=== PATIENT | female | born 1955 | race Caucasian/White ===

== ENCOUNTER 2018-10-22 10:57 | Inpatient (IN) | payer OTHER, SELFPAY ==
[2018-10-08 13:41] VITALS: BMI 52.8
[2018-10-22] VITALS (14 sets, daily range): BP systolic 123–160; BP diastolic 59–84; PULSE 70–82; RESP 13–20; TEMP 35.9–36.7; O2SAT 92–99; BMI 52.8
--- NOTE | 2018-10-22 06:00 | DI.RAD.S_ITS ---
PROCEDURE: XR KNEE LT 1TO2V INDICATIONS: total left knee TECHNIQUE: 2 view(s) of the knee acquired. COMPARISON: [facility] RONNA Jung, XR KNEE ARTHRITIC SERIES BI, 08/29/2018, 9:04. FINDINGS: Bones: Patient is status post knee joint arthroplasty. Hardware components are in expected positions. Visualized bony structures are intact. Soft tissues: Overlying postoperative changes are noted. IMPRESSION: Postoperative changes as above. Dictated by: Marion Perkins M.D. on 10/22/2018 at 15:33 Approved by: Marion Perkins M.D. on 10/22/2018 at 15:34
--- NOTE | 2018-10-22 11:32 | PM.PREOP ---
Pre-operative Note Interval Note History & Physical reviewed/Exam performed by Physician: Yes Changes to H&P: No
--- NOTE | 2018-10-22 11:32 | PM.OP.1 ---
Operative Date/Time/Diagnoses Date of procedure: 10/22/18 Time of procedure: 14:45 Pre-op diagnosis: Left knee osteoarthritis Post-op diagnosis: same Procedure & Clinicians Procedure: Left total knee arthroplasty Same procedure as scheduled: Yes Indications: The patient presents today for total knee arthroplasty after failure of conservative treatment. The nature of the procedure including the risks and benefits, alternatives, postoperative course and expected outcome were discussed and all questions answered. Consent was obtained. Operative site confirmed and marked. Surgeon: Harlan Yoo Photo Print Specialist: Connor Jerez Anesthesia Type: General, Spinal, Peripheral nerve block and Local Operative Notes Findings: The patient had severe osteoarthritis primarily affecting the medial compartment. She also had significant restrictions in her preoperative range of motion which was approximately 5 to 75?. The procedure was difficult given her loss of motion and the size of her leg. It was somewhat difficult to assess the overall balance as the posterior soft tissues kept pushing the tibia anteriorly in flexion. The femoral component was downsized to decompression the flexion space to help with her loss of flexion. Closure Type: primary Specimen(s): none sent Prosthetic devices, grafts, tissues, transplants, or devices: Loco and Nephew Oliverio BCS: 5 femoral component, 3 tibial component, 9 mm BCS polyethylene tray and 29 x 7.5 mm round patella Applied: implant(s) Estimated Blood Loss (mL): 20 Blood products transfused: none Tourniquet time (min): 87 Procedure in detail: The patient was taken to the operative suite and placed under general and spinal anesthesia with an adductor nerve block. The patient was given prophylactic antibiotics prior to surgery. The patient was also given tranexamic acid, 1 g, just prior to surgery for postoperative hemostasis. The lateral knee was prepped and the joint injected with 20 mL of 1% Lidocaine with epinephrine. The knee was then prepped and draped in usual sterile fashion. The leg was exsanguinated with an Esmarch dressing and the tourniquet raised to 300 torr. A 15 cm anterior incision was made. Next a medial trivector arthrotomy was made. The extensor mechanism was marked to ensure accurate repair. Initial exposing dissection was carried out medially and laterally. The knee was then extended and the patellar thickness was measured and a cut made removing approximately 7-8 mm of bone. The patella was then sized and drilled. Some excess lateral bone was excised and the patellofemoral ligament released. The knee was then flexed and the intramedullary femoral guide jillian placed. The distal femoral cut was made in 6 ? of valgus at the + 0 position. The femoral size was measured and the appropriate cutting block was then placed and the anterior, posterior and chamfer cuts made. The extra medullary tibial alignment jillian was then placed along the anatomic axis of the tibia approximating the normal slope. The guide was set to remove approximately 10 mm from the less affected lateral side. The proximal tibial cut was then made with an oscillating saw. All meniscus and bony debris was then removed. Flexion extension gaps were checked. The knee was well balanced in extension but still tight in flexion. I decided to downsize the femur at this point to decompress the flexion space. The patient had good overall medial lateral balance with just slight increased lateral laxity. The soft tissues were then injected with a combination of 20 mL of half percent Marcaine with epinephrine and 20 mL of Exparel. The trial components were then placed. The knee went into full extension and flexion beyond 120?. There was excellent medial- lateral balance throughout motion. Patellar tracking was excellent. The trial components were removed and the knee was cleansed with Pulsavac irrigation and dried. The final components were cemented in with high viscosity vacuum mixed bone cement with antibiotics. The knee was held in extension and the patellar clamp until the cement had adequately cured. The knee was irrigated and inspected for any further debris. The knee was then irrigated with dilute Betadine solution. The extensor mechanism was closed with 5 interrupted #1 Vicryl sutures in 90 degrees of flexion. The joint was then injected with a combination of 1 g of tranexamic acid and 20 mL of quarter percent Marcaine with epinephrine. The subcutaneous tissue was closed with 2-0 Vicryl. The skin was closed with adelaida and surgical adhesive. An juan dressing and Romario wrap were then applied. The patient tolerated the procedure well and was returned to recovery room in good condition. Complications: none Post-operative Condition: stable Disposition: PACU Plan for aftercare: [facility] protocol for total knee arthroplasty.
[2018-10-22] MEDS: LACTATED RINGERS 1,000 ML 42 ML IV ×2 (11:36→13:28)
[2018-10-22] MEDS: ACETAMINOPHEN 325 MG TABLET 975 MG PO ×3 (11:37→20:01)
[2018-10-22] MEDS: PREGABALIN 75 MG CAPSULE PO (11:37)
[2018-10-22] MEDS: CELECOXIB 200 MG CAPSULE PO (11:37)
[2018-10-22] MEDS: MIDAZOLAM 2 MG/2 ML VIAL IV (12:31)
[2018-10-22] MEDS: fentaNYL 100 MCG/2 ML INJ 50 MCG IV (12:31)
--- NOTE | 2018-10-22 12:35 | SUR.OPER ---
Supine on padded OR bed. Pillow under head, arms secured on padded armboards <90 degree abduction. Safety belt across torso. Non-operative leg secured with tape over blanket over lower leg. Operative leg secured in DeMayo/Daniel positioner. Foam padded brace at thigh of operative leg.
[2018-10-22] MEDS: CEFAZOLIN 2 GM/100 ML FROZ.PIGGY IV (12:50)
[2018-10-22] MEDS: LIDOCAINE 1% W/EPI 20 ML INJ (13:26)
[2018-10-22] MEDS: BUPIVACAINE 0.25% W/ EPI (PF) 40 ML, BUPIVACAINE LIPOSOME 266 MG, SODIUM CHLORIDE 0.9% ... INJ (13:26)
[2018-10-22] MEDS: BUPIVACAINE 0.25% W/ EPI (PF) 20 ML, TRANEXAMIC ACID 1,000 MG, SODIUM CHLORIDE 0.9% 10 ML INJ (13:27)
--- NOTE | 2018-10-22 15:49 | SUR.PHASEI ---
PT TRANSFERRED TO ACUTE CARE FLOOR IN STABLE CONDITION. BEDSIDE REPORT GIVEN TO [facility] UPON ARRIVAL. PT FAMILY AT BEDSIDE UPON ARRIVAL TO ROOM. TRANSFERRED CARE OF PT TO [facility] AT THAT TIME IN STABLE CONDITION, VSS.
[2018-10-22] MEDS: OXYCODONE IR 5 MG TABLET 10 MG PO ×2 (16:39→20:00)
[2018-10-22] MEDS: LACTATED RINGERS 1,000 ML 125 ML IV (16:40)
--- NOTE | 2018-10-22 18:12 | PC.ADMIT ---
[address] [facility] Admission Note: The patient,Ellen Murillo,63 y/o, was given written information regarding hospital policies, unit procedures and contact persons. Patient's smoking status: Former smoker. Vital Signs - 8 hr 10/22/18 11:22 10/22/18 15:16 10/22/18 15:21 Temperature 97.7 F 98.0 F Pulse Rate 82 72 70 Respiratory Rate 20 16 16 Blood Pressure 144/83 H 132/75 127/75 Pulse Oximetry 97 95 95 10/22/18 15:26 10/22/18 15:31 10/22/18 15:36 Temperature Pulse Rate 71 72 73 Respiratory Rate 13 13 16 Blood Pressure 123/74 124/74 132/68 Pulse Oximetry 95 92 95 10/22/18 15:41 10/22/18 15:46 10/22/18 16:00 Temperature 97.9 F 96.6 F L Pulse Rate 70 72 70 Respiratory Rate 17 13 14 Blood Pressure 126/70 128/74 128/62 Pulse Oximetry 94 94 95 10/22/18 16:36 10/22/18 16:55 10/22/18 17:55 Temperature 97.7 F 97.2 F L 97.4 F L Pulse Rate 70 71 70 Respiratory Rate 15 16 16 Blood Pressure 144/77 H 157/81 H 160/84 H Pulse Oximetry 95 98 99 Patient up from pacu at 1555, awake and alert. denied pain at that time. scds in place and bulky drsg cdi.
[2018-10-22] MEDS: CARVEDILOL 25 MG TABLET PO (20:00)
[2018-10-22] MEDS: ASPIRIN EC 81 MG TABLET PO (20:00)
[2018-10-22] MEDS: LORATADINE 10 MG TABLET PO (20:01)
[2018-10-22] MEDS: CEFAZOLIN VIAL 3 GM in SODIUM CHLORIDE 0.9% 100 ML 200 ML IV (20:02)
--- NOTE | 2018-10-22 22:23 | PC.NURSE ---
Patient resting in bed most of the shift. Did get up with 2 assist and FWW to bathroom and was able to void. Pain controlled well with oxycodone. Patient has been calm and cooperative.
[2018-10-23] MEDS: OXYCODONE IR 5 MG TABLET 10 MG PO ×6 (01:12→22:08)
[2018-10-23] MEDS: CEFAZOLIN VIAL 3 GM in SODIUM CHLORIDE 0.9% 100 ML 200 ML IV (04:25)
[2018-10-23] MEDS: SODIUM CHLORIDE 0.9% FLUSH 10 ML IV ×3 (04:25→20:24)
[2018-10-23 07:35] VITALS: BP 135/58; PULSE 71; RESP 22; TEMP 36.8; O2SAT 97
[2018-10-23 07:51] LABS: Hematocrit 32.1 % (36-46); Hemoglobin 11.3 g/dL (12.0-16.0)
[2018-10-23] MEDS: MELOXICAM 7.5 MG TABLET 15 MG PO (09:30)
[2018-10-23] MEDS: ASPIRIN EC 81 MG TABLET PO ×2 (09:30→20:23)
[2018-10-23] MEDS: CARVEDILOL 25 MG TABLET PO ×2 (09:30→20:23)
[2018-10-23] MEDS: ACETAMINOPHEN 325 MG TABLET 975 MG PO ×3 (09:30→20:23)
[2018-10-23] MEDS: CANDESARTAN 16 MG TABLET 4 MG PO (09:30)
--- NOTE | 2018-10-23 09:39 | P.PN_ITS ---
Subjective Subjective Date Patient Seen: 10/23/18 Time Patient Seen: 09:39 Interval history: Pain mild to moderate. Denies fever chills. No nausea vomiting. Patient has not yet worked with physical therapy. Exam Vital Signs (past 8 hours): - 10/23/18 07:35 Temperature 98.3 F Pulse Rate 71 Respiratory Rate 22 Blood Pressure 135/58 L Pulse Oximetry 97 Oxygen Delivery Method Room Air Oxygen Flow Rate 0 Narrative Exam Narrative: Morbidly obese 63-year-old female in no apparent distress. LAVERNE dressing is on and functioning. Dressing is clean, dry and intact. Motor fun ction is intact distal left lower extremity. Left leg is warm and dry. Sensation grossly intact to light touch. Objective Labs Result Diagrams: 10/23/18 07:39 Labs: Laboratory Results - last 24 hr 10/23/18 07:39 Hgb 11.3 L Hct 32.1 L Assessment & Plan Post-op Postoperative Procedures: Procedures Operation Date: 10/22/18 13:15 Actual Procedures Side Surgeon p Total Knee Arthroplasty Left Harlan Yoo MD postop day 1 status post left total knee arthroplasty. Patient will mobilize with physical therapy work on lower extremity strength. Possible discharge home later today or tomorrow. Quality VTE Deep Vein Thrombosis/Pulmonary Embolism Present on Admission: No
--- NOTE | 2018-10-23 10:37 | CM.DANOTE ---
DCP: Case received, EMR reviewed and met with patient. Introduced self and role. , Mehul, also at bedside, and patient was sitting up in her chair. Was able to obtain baseline health information from patient. DCP template/assessment completed with information currently available. Patient is a 63 year old female who admitted yesterday morning to the care of the orthopedic team. PCP: Dr. Robles/[facility]. Payer: confirmed: [facility]. Patient came to the hospital for a surgical procedure. She had a left total knee arthroplasty. Patient had just finished working with physical therapy when this tool planner met with her. , Mehul, also in room. Patient and spouse reside in [place]. She is alert and oriented, has been independent at home, two grandkids and daughter live with them. She has been using a cane prior to surgery. She now has a walker available as well. Patient also has outpatient P.T. set up in [place]. P: DCP to continue to follow patient. She should be able to go home when she is medically stable, and cleared by the physical therapy team. Dorene Douglas RN/Director Case Management
--- NOTE | 2018-10-23 11:35 | PT.IIE ---
Current Diagnoses Pain in right knee (10/22/18) Surgery Performed Operation Date: 10/22/18 13:15 Actual Procedures p Total Knee Arthroplasty(Left) - Harlan Yoo MD Surgical History (Last Updated 10/08/18 @ 14:22 by Sabrina Burgos RN) History of carpal tunnel surgery of right wrist (Acute) History of ear surgery (Acute) Hx of abdominoplasty (Acute) Hx of dilation and curettage (Acute) Hx of elbow surgery (Acute) Hx of removal of cyst (Acute) S/P epidural steroid injection (Acute) Medical History (Last Updated 10/09/18 @ 07:26 by Sabrina Burgos RN) Atrial fibrillation (Acute) Back pain (Acute) Bronchitis (Acute) Cardiac arrest (Acute ~2011) CHF (congestive heart failure) (Acute) Concussion (Acute ~2016) Diverticulitis (Acute) Hearing impaired (Acute) HTN (hypertension) (Acute) 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) LBBB (left bundle branch block) (Acute) Nonischemic cardiomyopathy (Acute) Osteoarthritis (Acute) PVT (paroxysmal ventricular tachycardia) (Acute) Seasonal allergies (Acute) Sensitive skin (Acute) Whiplash (Acute) Physical Therapy Inpatient Evaluation/Re-Eval M1 PT/OT-IP Prior Functional Status Start: 10/23/18 08:35 Freq: NEEDED Status: Active Protocol: Document 10/23/18 11:02 AW (Rec: 10/23/18 11:32 AW [id number]) Medical Review Prior Functional Status Medical History Reviewed Yes Diet/Fluid Consistency Regular Communication No communication deficits Mobility and Gait Pt reports frequent but not constant use of SPC in her home, occasionally choosing to cruise countertops and furniture instead. She was using a SPC at all times outside of the house and on uneven surfaces Activities of Daily Living and IADL's Indpependent with all ADL/IADL 's. Social History Household Members spouse,children Living Arrangements House Number of Floors (Floors) Two Floors Number of Stairs To Enter/Railing? 2 JANIE with no railing Home Environment Standard Height Toilet,Tub/ Shower Home Equipment Front Wheel Walker,Straight Cane,Raised Toilet Seat w/ Armrests,Tub Transfer Bench, Hand Held Shower,Grab Bars In Shower Employment Status Self-Employed Additional Social History Comment Pt and her spouse live on the main level and do not need to use the stairs once inside the home. Spouse works outside the home, but is off until to assist at home. Adult children also live in the home . M2 PT-IP Current Condition Start: 10/23/18 08:35 Freq: NEEDED Status: Active Protocol: Document 10/23/18 11:02 AW (Rec: 10/23/18 11:32 AW [id number]) Physical Therapy Current Condition Current Condition Evaluation Date 10/23/18 Treatment Diagnosis s/p L TKA , impaired bed mobility, transfers, and gait Onset Date 10/22/18 Weight Bearing Status Weight Bearing Status Weight Bear as Tolerated M3 PT-IP Subjective Start: 10/23/18 08:35 Freq: NEEDED Status: Active Protocol: Document 10/23/18 11:02 AW (Rec: 10/23/18 11:32 AW [id number]) Subjective Physical Therapy Visit Type Type Initial Evaluation Visit Start Time 09:38 Visit Stop Time 10:18 Total Visit Minutes 40 Number of TRANSACTIONAL PARALEGAL Visits 0 Physical Therapy Visit Comments Patient Comments Pt is medicated and ready to participate with PT Patient Goals Pt would like to become more independent with walking and eventually be able to walk with no AD on uneven ground Therapy Pain Assessment Pain When Pain Assessed During Mobility Pain Present Pain Present Pain Reported Location Left Knee Intensity 5 Scale Used Numeric (1 - 10) M4 PT-IP Mobility and Gait Start: 10/23/18 08:35 Freq: NEEDED Status: Active Protocol: Document 10/23/18 11:02 AW (Rec: 10/23/18 11:32 AW [id number]) PT-Bed Mobility Assessment Rolling Type of Rolling Roll to Right Level of Assist Minimal Assistance Supine to Sit Supine to Sit Minimal Assistance Scooting Scooting to Edge of Bed Standby Assistance PT-Transfer Assessment Sit to and From Stand Sit to and from Stand Minimal Assistance,1 Person Assistance,Use of Upper Extremities Equipment Transfer Assistive Device Gait Belt,Front Wheeled Walker Orthotic/Prosthetic Devices or Brace: No Transfers Transfer Destination Bed,Chair,Toilet Transfer Technique Stand Step Pivot Transfer Ability Level of Assist Contact Guard Assistance, Minimal Assistance Comments Mobility Comments Pt requiring CGA to min A and verbal cues for sequencing for all transfers secondary to hesitation to move. Pt transferred to bed, chair, and toilet. Gait Assessment Gait Gait Assistance Required: Contact Guard Assist Distance (Feet) 30 Able to Maintain Weight Bearing Status Yes During Gait Assistive Devices Assistive Device Gait Belt,Front Wheeled Walker Orthotic/Prosthetic Devices or Brace: No Gait Deviations General Gait Pattern Antalgic,Decreased Stride Length,Decreased Feet Clearance,Flexed Trunk,Step-to Gait Factors Limiting Gait Function Factors Limiting Gait Function Decreased Activity Tolerance, Decreased Strength,Limited Range of Motion,Pain,Poor Balance Comments Gait Comments Pt ambulated 30' + 20' using FWW and CGA. She moves slowly with heavy reliance on upper extremities to offload the left knee during stance. PT-Balance Assessment Sitting Balance and Reactions Static Sitting Balance Ability Good Dynamic Sitting Balance Ability Good Standing Balance and Reactions Static Standing Balance Ability Good Dynamic Standing Balance Ability Fair Device Used FWW M5 PT-IP Objective Assessments Start: 10/23/18 08:35 Freq: NEEDED Status: Active Protocol: Document 10/23/18 11:02 AW (Rec: 10/23/18 11:32 AW [id number]) Orientation Orientation/Cognition Level of Alertness Alert Orientation Name,Month,Place,Situation Language Function Ability No Deficits Noted Safety Awareness Understands Safety Issues Memory Description No Deficits Noted Gross Range of Motion Upper Extremity ROM Assessment Within Functional Limits Lower Extremity ROM Assessment Left Impaired Impairments Left knee lacking ~10 degrees extension Strength Upper Extremity Strength Assessment Within Functional Limits Lower Extremity Strength Assessment Left Impaired Coordination Assessment Gross Coordination Gross Coordination WNL Sensation Assessment Sensation Gross Sensation WNL Light Touch Intact Muscle Tone Muscle Tone WNL Yes M6 PT-IP Treatment Start: 10/23/18 08:35 Freq: NEEDED Status: Active Protocol: Document 10/23/18 11:02 AW (Rec: 10/23/18 11:32 AW [id number]) Physical Therapy Treatment Exercises Exercises Ankle Pumps,Quad Sets,Passive Knee Extension Hang Education Education Provided Precautions,Weight Bearing Status,Post-Op Packet,Safety M7 PT-IP Assessment and Plan Start: 10/23/18 08:35 Freq: NEEDED Status: Active Protocol: Document 10/23/18 11:02 AW (Rec: 10/23/18 11:32 AW [id number]) PT Summary Assessment and Plan Potential Rehabilitation Potential Good Status of Condition at Evaluation Evolving Summary Impairments Pain,ROM,Strength,Balance,Bed Mobility,Transfers,Gait, Activity Tolerance Assessment Summary Pt is a 63 yo woman seen for PT eval on POD1 following L TKA. PLOF: Pt was ambulating with SPC for most household distances and all community distances; she reports she had become unable to walk grocery store distances in the weeks leading up to surgery. She was independent with all ADL/IADL 's. She has a spouse and adult children who live with her and are able to provide assistance. CLOF: Pt required CGA to min assist for bed mobility, transfers, and gait. She expressed some hesitancy to move initially, but showed good effort once up. BP monitored throughout session: 160/76 seated, 122/67 standing . Pt was asymptomatic in standing and recovered BP within one minute. PT reviewed plan of care, post-op exercises, and weightbearing status. Pt will require further therapy to increase her independence with all functional mobility, including stairs, before she discharges . Current PT recommendation is for discharge to home with assist for all mobility and outpatient PT when medically cleared. Will continue to assess. Goals Bed Mobility Goal Standby Assistance Transfer Goal Standby Assistance Gait Goal Standby Assistance Gait Distance 100 Other Goals Pt will ascend/descend 2 steps using hand-hold assist/CGA with no railing for safe access to home Frequency of Treatment Frequency Of Treatment Twice a Day Treatment Plan Physical Therapy Treatment Plan Bed Mobility Training,Transfer Training,Gait Training, Therapeutic Exercise,Balance Retraining,Post Op Education, Discharge Planning,Hot or Cold Pack,Neuromuscular Re-ed, Coordination Retraining,Manual Therapy Recommendations To Nursing Amount of Assist Needed 1 Person Assist Discharge Recommendations PT Discharge Recommendations Home with Assistance, Outpatient PT
[2018-10-23 11:41] VITALS: BP 137/59; PULSE 69; RESP 23; TEMP 37; O2SAT 99
[2018-10-23] MEDS: ONDANSETRON 4 MG ODT PO (12:51)
[2018-10-23 15:45] VITALS: BP 119/62; PULSE 71; RESP 18; TEMP 36.7; O2SAT 97
--- NOTE | 2018-10-23 16:42 | PT.IPTN ---
Current Diagnoses Pain in right knee (10/22/18) Surgery Performed Operation Date: 10/22/18 13:15 Actual Procedures p Total Knee Arthroplasty(Left) - Harlan Yoo MD Physical Therapy Treatment Note M2 PT-IP Current Condition Start: 10/23/18 08:35 Freq: NEEDED Status: Active Protocol: Document 10/23/18 11:02 AW (Rec: 10/23/18 11:32 AW [id number]) Physical Therapy Current Condition Current Condition Evaluation Date 10/23/18 Treatment Diagnosis s/p L TKA , impaired bed mobility, transfers, and gait Onset Date 10/22/18 Weight Bearing Status Weight Bearing Status Weight Bear as Tolerated M3 PT-IP Subjective Start: 10/23/18 08:35 Freq: NEEDED Status: Active Protocol: Document 10/23/18 15:53 AW (Rec: 10/23/18 16:42 AW [id number]) Subjective Physical Therapy Visit Type Type Treatment Note Visit Start Time 15:58 Visit Stop Time 16:22 Total Visit Minutes 24 Physical Therapy Visit Comments Patient Comments Pt has been feeling nauseous today but has not vomited. Nausea is well controlled with medication. She has been up in the chair since morning session and would like to use the washroom. Therapy Pain Assessment Pain When Pain Assessed During Mobility Pain Present Pain Present Pain Reported Location Left Knee Intensity 4 Scale Used Numeric (1 - 10) M4 PT-IP Mobility and Gait Start: 10/23/18 08:35 Freq: NEEDED Status: Active Protocol: Document 10/23/18 15:53 AW (Rec: 10/23/18 16:42 AW [id number]) PT-Bed Mobility Assessment Scooting Scooting to Edge of Bed Standby Assistance PT-Transfer Assessment Sit to and From Stand Sit to and from Stand Contact Guard Assistance, Minimal Assistance,Use of Upper Extremities Equipment Transfer Assistive Device Gait Belt,Front Wheeled Walker Orthotic/Prosthetic Devices or Brace: No Transfers Transfer Destination Bed,Toilet Transfer Technique Stand Step Pivot Transfer Ability Level of Assist Contact Guard Assistance, Minimal Assistance,Use of Upper Extremities Comments Mobility Comments Pt reports greater confidence in her knee this afternoon. She required CGA for transfer to and from toilet, min A for transfer from chair which is lower and softer. Gait Assessment Gait Gait Assistance Required: Contact Guard Assist Distance (Feet) 80 Able to Maintain Weight Bearing Status Yes During Gait Assistive Devices Assistive Device Gait Belt,Front Wheeled Walker Orthotic/Prosthetic Devices or Brace: No Gait Deviations General Gait Pattern Antalgic,Decreased Stride Length,Decreased Feet Clearance Comments Gait Comments Pt ambulated ~80' with improved gait pattern (step- through 75% of the time) using FWW CGA. Gait speed is slow and pt did require 3 short, standing rest breaks to complete 80'. She reported RPE 5/10 during ambulation. M5 PT-IP Objective Assessments Start: 10/23/18 08:35 Freq: NEEDED Status: Active Protocol: Document 10/23/18 11:02 AW (Rec: 10/23/18 11:32 AW [id number]) Orientation Orientation/Cognition Level of Alertness Alert Orientation Name,Month,Place,Situation Language Function Ability No Deficits Noted Safety Awareness Understands Safety Issues Memory Description No Deficits Noted Gross Range of Motion Upper Extremity ROM Assessment Within Functional Limits Lower Extremity ROM Assessment Left Impaired Impairments Left knee lacking ~10 degrees extension Strength Upper Extremity Strength Assessment Within Functional Limits Lower Extremity Strength Assessment Left Impaired Coordination Assessment Gross Coordination Gross Coordination WNL Sensation Assessment Sensation Gross Sensation WNL Light Touch Intact Muscle Tone Muscle Tone WNL Yes M6 PT-IP Treatment Start: 10/23/18 08:35 Freq: NEEDED Status: Active Protocol: Document 10/23/18 15:53 AW (Rec: 10/23/18 16:42 AW [id number]) Physical Therapy Treatment Exercises Exercises Ankle Pumps,Quad Sets,Passive Knee Extension Hang Education Education Provided Safety M7 PT-IP Assessment and Plan Start: 10/23/18 08:35 Freq: NEEDED Status: Active Protocol: Document 10/23/18 15:53 AW (Rec: 10/23/18 16:42 AW [id number]) PT Summary Assessment and Plan Summary Impairments Pain,ROM,Strength,Balance,Bed Mobility,Transfers,Gait, Activity Tolerance Assessment Summary Pt progressed gait distance but required 3 standing rest breaks to complete 80' with FWW CGA. RPE of 5/10 with ambulation indicates poor activity tolerance. PT continues to recommend discharge to home with assistance and outpatient PT but will continue to assess. Goals Bed Mobility Goal Standby Assistance Transfer Goal Standby Assistance Gait Goal Standby Assistance Gait Distance 100 Other Goals Pt will ascend/descend 2 steps using hand-hold assist/CGA with no railing for safe access to home Frequency of Treatment Frequency Of Treatment Twice a Day Treatment Plan Physical Therapy Treatment Plan Bed Mobility Training,Transfer Training,Gait Training, Therapeutic Exercise,Balance Retraining,Post Op Education, Discharge Planning,Hot or Cold Pack,Neuromuscular Re-ed, Coordination Retraining,Manual Therapy Recommendations To Nursing Amount of Assist Needed 1 Person Assist Discharge Recommendations PT Discharge Recommendations Home with Assistance, Outpatient PT
[2018-10-23 20:15] VITALS: BP 127/59; PULSE 70; RESP 17; TEMP 36.1; O2SAT 99
[2018-10-23] MEDS: LORATADINE 10 MG TABLET PO (20:23)
--- NOTE | 2018-10-23 20:39 | PC.NURSE ---
Patient started up in the chair at the beginning of the shift. Tolerated sitting up for couple of hours. Back to bed with PT, tolerated well with ambulating. CMS(+), pain controlled well with oxycodone.
[2018-10-24] MEDS: ONDANSETRON 4 MG ODT PO ×2 (00:40→09:19)
[2018-10-24 00:45] VITALS: BP 136/58; PULSE 73; RESP 18; TEMP 36.3; O2SAT 96
[2018-10-24 04:07] VITALS: BP 140/82; PULSE 71; RESP 20; TEMP 36.6; O2SAT 98
[2018-10-24] MEDS: OXYCODONE IR 5 MG TABLET 10 MG PO (05:29)
[2018-10-24 08:38] VITALS: BP 116/62; PULSE 73; RESP 22; TEMP 36.7; O2SAT 97
--- NOTE | 2018-10-24 09:19 | PM.DS.1 ---
History of Present Illness History of Present Illness Date Patient Seen: 10/24/18 Time Patient Seen: 09:19 Chief complaint: [id number] Narrative: Hospital day 3, postop day 2 following left total knee arthroplasty by Dr. Yoo. She has remained stable postoperatively. She does complain of nausea with oxycodone. She is concerned about using this at home. She has not been tried on [place]. She is a [facility] patient and has prescriptions at home for oxycodone and meloxicam. She has work with PT and they have okayed her for home except she needs stair training. She is scheduled to go to [facility] in [place]. Discharge Providers Provider Date of admission: 10/22/18 10:57 Discharge Date: 10/24/18 Consults: 10/22/18 16:10 Consult to Discharge Planning Routine Comment: Consult to Physical Therapy Evaluate & Treat Comment: Physician Instructions: postop TKA protocol Consult to Respiratory Therapy Evaluate & Treat Comment: Physician Instructions: Evaluate and treat Discharge provider: Sergei Jaramillo PA-C Summary Hospital Course Discharge Diagnosis: Status post left total knee arthroplasty Hospital Course: Patient brought to hospital on 10/22/2018 for above noted surgery. She remained stable postoperatively. Progressed with physical therapy. Ready for discharge home on postop day 2. Status at Discharge Cognitive/behavioral status at discharge: oriented Functional status at discharge: uses cane/walker Overall status at discharge: patient is progressing back to baseline Time Spent with Patient Time spent: Less than 30 minutes Exam Vital Signs (past 8 hours): - 10/24/18 04:07 10/24/18 08:38 Temperature 97.8 F 98.1 F Pulse Rate 71 73 Respiratory Rate 20 22 Blood Pressure 140/82 116/62 Pulse Oximetry 98 97 Oxygen Delivery Method Room Air Oxygen Flow Rate 0 Narrative Exam Narrative: Alert, oriented no acute distress resting in bed. Legs. Romario wrap and juan dressing to left knee is dry without drainage or inflammation. Good VAC to juan dressing. No calf pain or swelling. Pulses symmetrical. Objective Labs Result Diagrams: 10/23/18 07:39 Discharge Plan Discharge Plan Patient Disposition: Home Discharge comment: Discharge home today after cleared by PT. She is a [facility] patient has prescriptions at home for oxycodone and meloxicam. Given prescription for Hammond 10/[address] of oxycodone. She is scheduled go to [facility] in [place]. She will take aspirin 81 mg 1 b.i.d. times 30 days postop. Discharge Med Rec/Prescriptions Prescriptions: New hydrocodone-acetaminophen 10-325 mg Tablet 1 tab PO Q4HR PRN (Reason: Pain, Moderate (4-6)) Qty: 40 RF: 0 aspirin 81 mg Tablet,Delayed Release (Dr/Ec) 81 mg PO BID Qty: 60 RF: 0 Continued carvedilol 25 mg Tablet 25 mg PO BID RF: 0 candesartan 4 mg Tablet 4 mg PO DAILY RF: 0 acetaminophen [Tylenol Extra Strength] 500 mg Tablet 1,000 mg PO Q6H PRN (Reason: Pain) RF: 0 meloxicam 7.5 mg Tablet 7.5 mg PO BID RF: 0 Zyrtec 10 mg Capsule 10 mg PO BEDTIME RF: 0 Provider Discharge Instructions Diet: Diet as Tolerated Activity: Ambulate as tolerated. Use walker as needed. Range of motion of left knee as much as possible. Cold/Heat Therapy: Cold pack to left knee as needed. Skin/Wound/Dressing Care Report to your healthcare provider any signs of infection, such as:: chills, fever, night sweats, increased pain, unusual drainage and unusual redness Dressing: Keep juan dressing in place until postop visit. Visit Report/Discharge Packet Instructions: DI for Knee Replacement Quality VTE Deep Vein Thrombosis/Pulmonary Embolism Present on Admission: No
--- NOTE | 2018-10-24 10:38 | PT.IPTN ---
Current Diagnoses Pain in right knee (10/22/18) Surgery Performed Operation Date: 10/22/18 13:15 Actual Procedures p Total Knee Arthroplasty(Left) - Harlan Yoo MD Physical Therapy Treatment Note M2 PT-IP Current Condition Start: 10/23/18 08:35 Freq: NEEDED Status: Active Protocol: Document 10/23/18 11:02 AW (Rec: 10/23/18 11:32 AW [id number]) Physical Therapy Current Condition Current Condition Evaluation Date 10/23/18 Treatment Diagnosis s/p L TKA , impaired bed mobility, transfers, and gait Onset Date 10/22/18 Weight Bearing Status Weight Bearing Status Weight Bear as Tolerated M3 PT-IP Subjective Start: 10/23/18 08:35 Freq: NEEDED Status: Active Protocol: Document 10/24/18 10:38 AB (Rec: 10/24/18 12:07 AB [email or web address]) Subjective Physical Therapy Visit Type Type Treatment Note Visit Start Time 10:38 Visit Stop Time 11:06 Total Visit Minutes 28 Number of ONLINE CONTENT DEVELOPER Visits 0 Physical Therapy Visit Comments Patient Comments pt agreeable to do PT but c/o nausea Therapy Pain Assessment Pain When Pain Assessed During Mobility Pain Present Pain Present Pain Reported Location Left Knee Intensity 8 Scale Used Numeric (1 - 10) Pain Management Techniques Re-positioning,Timing of Activity with Medications M4 PT-IP Mobility and Gait Start: 10/23/18 08:35 Freq: NEEDED Status: Active Protocol: Document 10/24/18 10:38 AB (Rec: 10/24/18 12:07 AB [email or web address]) PT-Bed Mobility Assessment Supine to Sit Supine to Sit Standby Assistance,Bedrails PT-Transfer Assessment Sit to and From Stand Sit to and from Stand Contact Guard Assistance, Maximum Assistance,1 Person Assistance,Use of Upper Extremities Equipment Transfer Assistive Device Gait Belt,Front Wheeled Walker Orthotic/Prosthetic Devices or Brace: No Transfers Transfer Destination Chair,Toilet Transfer Technique pt ambulated using FWW Transfer Ability Level of Assist Contact Guard Assistance, Minimal Assistance Comments Mobility Comments pt completed supine to sit SBA . pt was able to sit on EOB SBA. pt ambulated towards the toilet using FWW CGA to occasional min A and cues. pt completed sit to stand from the toilet requiring max A and cues and attempted x 4 before able to complete. pt ambulated towards the sink using FWW CGA and was able to maintain standing using FWW for support CGA while completing handwashing. pt ambulated using FWW heading towards the stairs but c/o increase pain and nausea and requested for stair climbing to be conducted later in the afternoon. pt requested a seated rest break. agreed to get up to sit on the chair. completed sit to stand form the EOB SBA and ambulated to the chair CGA. call light and table placed within reach. Gait Assessment Gait Gait Assistance Required: Contact Guard Assist,Minimum Assistance Distance (Feet) 25 Able to Maintain Weight Bearing Status Yes During Gait Assistive Devices Assistive Device Gait Belt,Front Wheeled Walker Orthotic/Prosthetic Devices or Brace: No Gait Deviations General Gait Pattern Antalgic,Decreased Stride Length,Decreased Feet Clearance,Step-to Gait Factors Limiting Gait Function Factors Limiting Gait Function Decreased Activity Tolerance, Decreased Strength,Limited Range of Motion,Pain,Poor Balance M5 PT-IP Objective Assessments Start: 10/23/18 08:35 Freq: NEEDED Status: Active Protocol: Document 10/23/18 11:02 AW (Rec: 10/23/18 11:32 AW [id number]) Orientation Orientation/Cognition Level of Alertness Alert Orientation Name,Month,Place,Situation Language Function Ability No Deficits Noted Safety Awareness Understands Safety Issues Memory Description No Deficits Noted Gross Range of Motion Upper Extremity ROM Assessment Within Functional Limits Lower Extremity ROM Assessment Left Impaired Impairments Left knee lacking ~10 degrees extension Strength Upper Extremity Strength Assessment Within Functional Limits Lower Extremity Strength Assessment Left Impaired Coordination Assessment Gross Coordination Gross Coordination WNL Sensation Assessment Sensation Gross Sensation WNL Light Touch Intact Muscle Tone Muscle Tone WNL Yes M6 PT-IP Treatment Start: 10/23/18 08:35 Freq: NEEDED Status: Active Protocol: Document 10/24/18 10:38 AB (Rec: 10/24/18 12:07 AB [email or web address]) Physical Therapy Treatment Education Education Provided Safety M7 PT-IP Assessment and Plan Start: 10/23/18 08:35 Freq: NEEDED Status: Active Protocol: Document 10/24/18 10:38 AB (Rec: 10/24/18 12:07 AB [email or web address]) PT Summary Assessment and Plan Potential Rehabilitation Potential Good Summary Impairments Pain,ROM,Strength,Balance, Coordination,Bed Mobility, Transfers,Gait,Activity Tolerance Progress Towards Goals Slow Progress due to Pain Assessment Summary pt requiring SBA to min A with mobility and plans to go home with spouse to assist her. pt was not able to tolerate much activity this morning with c/o nausea and increase pain. will conduct long distance ambulation and stair climbing training this afternoon to determine safe d/ c plans. will also complete caregiver training when appropriate. will continue to assess pt's progress. Goals Bed Mobility Goal Standby Assistance Transfer Goal Standby Assistance Gait Goal Standby Assistance Gait Distance 100 Other Goals Pt will ascend/descend 2 steps SPC CGA Frequency of Treatment Frequency Of Treatment Twice a Day Treatment Plan Physical Therapy Treatment Plan Bed Mobility Training,Transfer Training,Gait Training, Therapeutic Exercise,Balance Retraining,Post Op Education, Discharge Planning,Hot or Cold Pack,Neuromuscular Re-ed, Coordination Retraining,Manual Therapy Recommendations To Nursing Amount of Assist Needed 1 Person Assist Discharge Recommendations PT Discharge Recommendations Home with Assistance, Outpatient PT
[2018-10-24] MEDS: CANDESARTAN 16 MG TABLET 4 MG PO (11:09)
[2018-10-24] MEDS: ACETAMINOPHEN 325 MG TABLET 975 MG PO (11:10)
[2018-10-24] MEDS: CARVEDILOL 25 MG TABLET PO (11:10)
[2018-10-24] MEDS: HYDROCODONE/ACET 10/325 TABLET 1 TAB PO (11:10)
[2018-10-24] MEDS: ASPIRIN EC 81 MG TABLET PO (11:10)
[2018-10-24] MEDS: MELOXICAM 7.5 MG TABLET 15 MG PO (11:10)
[2018-10-24] MEDS: SODIUM CHLORIDE 0.9% FLUSH 10 ML IV (11:11)
[2018-10-24 12:10] VITALS: BP 140/65; PULSE 73; RESP 21; TEMP 36.7; O2SAT 99
--- NOTE | 2018-10-24 14:15 | PT.IPTN ---
Current Diagnoses Pain in right knee (10/22/18) Surgery Performed Operation Date: 10/22/18 13:15 Actual Procedures p Total Knee Arthroplasty(Left) - Harlan Yoo MD Physical Therapy Treatment Note M2 PT-IP Current Condition Start: 10/23/18 08:35 Freq: NEEDED Status: Discharge Protocol: Document 10/23/18 11:02 AW (Rec: 10/23/18 11:32 AW [id number]) Physical Therapy Current Condition Current Condition Evaluation Date 10/23/18 Treatment Diagnosis s/p L TKA , impaired bed mobility, transfers, and gait Onset Date 10/22/18 Weight Bearing Status Weight Bearing Status Weight Bear as Tolerated M3 PT-IP Subjective Start: 10/23/18 08:35 Freq: NEEDED Status: Discharge Protocol: Document 10/24/18 14:15 AB (Rec: 10/24/18 17:13 AB [email or web address]) Subjective Physical Therapy Visit Type Type Treatment Note Visit Start Time 14:15 Visit Stop Time 14:50 Total Visit Minutes 35 Number of VP STRATE[employer]IC [employer]NERSHIPS Visits 0 Physical Therapy Visit Comments Patient Comments pt agreeable to do PT Therapy Pain Assessment Pain When Pain Assessed At Rest Pain Present Pain Present Pain Reported Location Left Knee Intensity 4 Scale Used Numeric (1 - 10) Pain Management Techniques Re-positioning,Timing of Activity with Medications M4 PT-IP Mobility and Gait Start: 10/23/18 08:35 Freq: NEEDED Status: Discharge Protocol: Document 10/24/18 14:15 AB (Rec: 10/24/18 17:13 AB [email or web address]) PT-Transfer Assessment Sit to and From Stand Sit to and from Stand Standby Assistance,Contact Guard Assistance Equipment Transfer Assistive Device Bed Rail,Front Wheeled Walker Orthotic/Prosthetic Devices or Brace: No Comments Mobility Comments caregiver training conducted. educated pt's spouse on how to use safety belt and how to assist pt. spouse was able to assist pt with sit to stand and ambulation using FWW. pt completed ambulation in room using FWW CGA ~ 40 ft. Gait Assessment Gait Gait Assistance Required: Contact Guard Assist Distance (Feet) 100 Able to Maintain Weight Bearing Status Yes During Gait Assistive Devices Assistive Device Gait Belt,Front Wheeled Walker Orthotic/Prosthetic Devices or Brace: No Gait Deviations General Gait Pattern Antalgic,Decreased Stride Length,Decreased Feet Clearance,Step-to Gait Factors Limiting Gait Function Factors Limiting Gait Function Decreased Activity Tolerance, Decreased Strength,Pain,Poor Balance,Poor Safety Awareness, Respiratory Distress Comments Gait Comments spouse assisted pt with further ambulation in the hallway towards the stairs and completed ~ 100 ft and also ambulated ~ 50 ft back towards the room using fWW CGA. spouse assist pt safely. Stair Climbing Assessment Evaluation Level of Assist On Stairs Moderate Assistance,1 Person Assistance Devices Stair Climbing Assistive Devices Straight Cane Technique/Endurance Stair Climbing Direction Ascend and Descend Stair Climbing Technique Step to Step Number of Steps Climbed 1 Stair Climbing Set # Repetitions (reps) 4 Comments Stair Climbing Comments PT demonstrated and educated pt and spouse on how to do stairs using SPC. pt completed up/down 1 step using SPC initially requiring min to mod A x 2 and max cues. pt completed again with spouse providing assistance and PT just CGA. pt completed stairs . pt stated that her son will be able to assist her at home as well. informed pt to have her son assist them with stair and pt agreed. M5 PT-IP Objective Assessments Start: 10/23/18 08:35 Freq: NEEDED Status: Discharge Protocol: Document 10/23/18 11:02 AW (Rec: 10/23/18 11:32 AW [id number]) Orientation Orientation/Cognition Level of Alertness Alert Orientation Name,Month,Place,Situation Language Function Ability No Deficits Noted Safety Awareness Understands Safety Issues Memory Description No Deficits Noted Gross Range of Motion Upper Extremity ROM Assessment Within Functional Limits Lower Extremity ROM Assessment Left Impaired Impairments Left knee lacking ~10 degrees extension Strength Upper Extremity Strength Assessment Within Functional Limits Lower Extremity Strength Assessment Left Impaired Coordination Assessment Gross Coordination Gross Coordination WNL Sensation Assessment Sensation Gross Sensation WNL Light Touch Intact Muscle Tone Muscle Tone WNL Yes M6 PT-IP Treatment Start: 10/23/18 08:35 Freq: NEEDED Status: Discharge Protocol: Document 10/24/18 14:15 AB (Rec: 10/24/18 17:13 AB [email or web address]) Physical Therapy Treatment Education Education Provided Safety M7 PT-IP Assessment and Plan Start: 10/23/18 08:35 Freq: NEEDED Status: Discharge Protocol: Document 10/24/18 14:15 AB (Rec: 10/24/18 17:13 AB [email or web address]) PT Summary Assessment and Plan Potential Rehabilitation Potential Good Summary Impairments Pain,ROM,Strength,Balance, Coordination,Bed Mobility, Transfers,Gait,Activity Tolerance Progress Towards Goals Progressing Toward Goals Assessment Summary caregiver training conducted and spouse was able to assist pt safely. recommending pt to have her son and spouse assist with stairclimbing and pt agreed. pt plans to go home today and may go home when medically stable. Goals Bed Mobility Goal Standby Assistance Transfer Goal Standby Assistance Gait Goal Standby Assistance Gait Distance 100 Other Goals Pt will ascend/descend 2 steps SPC CGA Frequency of Treatment Frequency Of Treatment Twice a Day Treatment Plan Physical Therapy Treatment Plan Bed Mobility Training,Transfer Training,Gait Training, Therapeutic Exercise,Balance Retraining,Post Op Education, Discharge Planning,Hot or Cold Pack,Neuromuscular Re-ed, Coordination Retraining,Manual Therapy Recommendations To Nursing Amount of Assist Needed 1 Person Assist Discharge Recommendations PT Discharge Recommendations Home with Assistance, Outpatient PT
--- NOTE | 2018-10-24 15:37 | PC.NURSE ---
Discharge Pt c/o nausea and upset stomach this AM. Medicated with zofran and also provided with yang angela. Pt states nausea improved. Tolerated norco 10s without issue. d/c instructions provided to pt and her . aware to contact MD with any additional questions as well as for her f/u apts. pt took all belongings with her. Left in w/c with RN escort.
== END 2018-10-24 15:35 | disposition home or self-care (01) | DRG 470 ==
PROVIDERS: Admitting Provider Orthopaedic Surgery; Visit Provider Orthopaedic Surgery
PROC: 0SRD0JZ Replacement of Left Knee Joint with Synthetic Substitute, Open Approach (ICD-10-PCS; CPT 27447; principal; 2018-10-22 13:15)
DX: M17.12 Unilateral primary osteoarthritis, left knee (principal); I50.22 Chronic systolic (congestive) heart failure; I42.8 Other cardiomyopathies; Z68.43 Body mass index [BMI] 50.0-59.9, adult; I44.7 Left bundle-branch block, unspecified; E66.01 Morbid (severe) obesity due to excess calories; Z95.810 Presence of automatic (implantable) cardiac defibrillator; I11.0 Hypertensive heart disease with heart failure; I49.3 Ventricular premature depolarization; I48.91 Unspecified atrial fibrillation
CPT/HCPCS: 36415; 64447; 73560; 85014; 85018; 97110; 97116; 97161; 97530; C1776; C9290; J0171; J0690; J1100; J2250; J2405; J2704; J3010

== ENCOUNTER 2019-02-04 10:25 | Inpatient (IN) | payer OTHER, SELFPAY ==
[2018-10-22 15:55] VITALS: BMI 52.8
[2019-01-22 09:48] VITALS: BMI 53.7
[2019-02-04] VITALS (15 sets, daily range): BP systolic 110–164; BP diastolic 56–93; PULSE 69–74; RESP 13–25; TEMP 36.1–36.6; O2SAT 97–100; BMI 53.7
--- NOTE | 2019-02-04 06:00 | DI.RAD.S_ITS ---
PROCEDURE: XR KNEE RT 1TO2V INDICATIONS: right total knee TECHNIQUE: 2 view(s) of the knee acquired. COMPARISON: [facility], CR, XR KNEE LT 1TO2V, 10/22/2018, 15:21. FINDINGS: Bones: Patient is status post knee joint arthroplasty. Hardware components are in expected positions. Visualized bony structures are intact. Soft tissues: Overlying postoperative changes are noted. IMPRESSION: Normal alignment after right total knee arthroplasty. Dictated by: Myles Karimi M.D. on 02/04/2019 at 14:40 Approved by: Myles Karimi M.D. on 02/04/2019 at 14:40
[2019-02-04] MEDS: PREGABALIN 75 MG CAPSULE PO (11:31)
[2019-02-04] MEDS: CELECOXIB 200 MG CAPSULE PO (11:31)
[2019-02-04] MEDS: ACETAMINOPHEN 325 MG TABLET 975 MG PO (11:31)
[2019-02-04] MEDS: LACTATED RINGERS 1,000 ML 42 ML IV (11:31)
--- NOTE | 2019-02-04 11:58 | PM.PREOP ---
Pre-operative Note Interval Note History & Physical reviewed/Exam performed by Physician: Yes Changes to H&P: No
--- NOTE | 2019-02-04 11:59 | PM.OP.1 ---
Operative Date/Time/Diagnoses Date of procedure: 02/04/19 Time of procedure: 14:00 Pre-op diagnosis: Right knee osteoarthritis Post-op diagnosis: same Procedure & Clinicians Procedure: Right total knee arthroplasty Same procedure as scheduled: Yes Surgeon: Harlan Yoo Event Sales Representative: Connor Jerez Anesthesia Type: General, Spinal and Local Operative Notes Findings: The patient had severe osteoarthritis with varus alignment. She had about a 5-7 degree flexion contracture and flexion to about 100?. The femoral component was downsized and shifted 2 mm anteriorly as was done on her contralateral knee. This gave nice overall balance in flexion extension. A 10 mm spacer was used. Patellar tracking was excellent. Closure Type: primary Specimen(s): none sent Prosthetic devices, grafts, tissues, transplants, or devices: Loco [employer] Nephew Oliverio BCS: 5 femoral component, 3 tibial component, 10 mm BCS polyethylene tray and 29 x 7.5 mm round patella Applied: implant(s) Estimated Blood Loss (mL): 10 Blood products transfused: none Tourniquet time (min): 54 Procedure in detail: The patient was taken to the operative suite and placed under general and spinal anesthesia. The patient was given prophylactic antibiotics prior to surgery. The patient was also given tranexamic acid, 1 g, just prior to surgery for postoperative hemostasis. The lateral knee was prepped and the joint injected with 20 mL of 1% Lidocaine with epinephrine. The knee was then prepped and draped in usual sterile fashion. The leg was exsanguinated with an Esmarch dressing and the tourniquet raised to 325 torr. A 15 cm anterior incision was made. Next a medial trivector arthrotomy was made. The extensor mechanism was marked to ensure accurate repair. Initial exposing dissection was carried out medially and laterally. The knee was then flexed and the intramedullary femoral guide jillian placed. The distal femoral cut was made in [6]? of valgus at the +[0] position. The femoral size was measured and the appropriate cutting block was then placed and the anterior, posterior and chamfer cuts made. The femur was downsized to a 5 and shifted 2 mm anterior as this was necessary on her contralateral side done earlier in the year. The intramedullary tibial alignment jillian was then placed. The guide was set to remove approximately [10] mm from the less affected [lateral] side. The proximal tibial cut was then made with an oscillating saw. All meniscus and bony debris was then removed. Posterior femoral osteophytes removed with a curved osteotome. Flexion extension gaps were checked. [No specific balancing was required other than routine exposure and removal of osteophytes]. The soft tissues were then injected with a combination of 20 mL of half percent Marcaine with epinephrine and 20 mL of Exparel. The trial components were then placed. The knee was then extended and the patellar thickness was measured and a cut made removing approximately 7-8 mm of bone. The patella was then sized and drilled. Some excess lateral bone was excised and the patellofemoral ligament released. [The knee went into full extension and flexion beyond 120?]. There was [excellent] medial-lateral balance throughout motion. Patellar tracking was [excellent]. The trial components were removed and the knee was cleansed with Pulsavac irrigation and dried. The final components were cemented with high viscosity vacuum mixed bone cement with antibiotics. The joint was filled with a dilute Betadine solution. The knee was held in extension and the patellar clamped until the cement was adequately cured. The knee was then irrigated. The extensor mechanism was closed with 5 interrupted #1 Vicryl sutures and a running Quill suture at approximately 90 degrees of flexion. The joint was then injected with a combination of 1 g of tranexamic acid and 20 mL of quarter percent Marcaine with epinephrine. The subcutaneous tissue was closed with 2 0 Vicryl. The skin was closed with adelaida and surgical adhesive. An juan dressing and Romario wrap were then applied. The patient tolerated the procedure well and was returned to recovery room in good condition. Complications: none Post-operative Condition: stable Disposition: PACU Plan for aftercare: [facility] protocol for total knee arthroplasty.
[2019-02-04] MEDS: CEFAZOLIN 2 GM/100 ML FROZ.PIGGY IV ×2 (12:34→20:52)
[2019-02-04] MEDS: LIDOCAINE 1% W/EPI 20 ML INJ (12:55)
[2019-02-04] MEDS: TRANEXAMIC ACID 1,000 MG VIAL 1000 MG IV (13:00)
[2019-02-04] MEDS: BUPIVACAINE 0.25% W/ EPI (PF) 20 ML, TRANEXAMIC ACID 1,000 MG, SODIUM CHLORIDE 0.9% 10 ML INJ (13:14)
[2019-02-04] MEDS: BUPIVACAINE 0.25% W/ EPI (PF) 40 ML, BUPIVACAINE LIPOSOME 266 MG, SODIUM CHLORIDE 0.9% ... INJ (13:14)
--- NOTE | 2019-02-04 15:05 | SUR.PHASEI ---
Report called to
--- NOTE | 2019-02-04 15:18 | SUR.PHASEI ---
Patient transferred to the floor with belongings bag, seahawks bag, red bag and walker. Report to [place]. VS stable. IV saline locked. + PP to RLE. Dull sensation to bilateral feet, no movement to feet. Matthew dressing CDI, green light flashing.
[2019-02-04] MEDS: LACTATED RINGERS 1,000 ML 125 ML IV (16:01)
[2019-02-04] MEDS: IBUPROFEN 400 MG TABLET PO ×2 (17:27→20:53)
[2019-02-04] MEDS: HYDROCODONE/ACET 5/325 TABLET 2 TAB PO ×2 (18:34→23:00)
[2019-02-04] MEDS: ASPIRIN EC 81 MG TABLET PO (20:53)
[2019-02-04] MEDS: carvediloL 25 MG TABLET PO (20:54)
[2019-02-05] MEDS: IBUPROFEN 400 MG TABLET PO ×3 (00:33→09:34)
[2019-02-05] MEDS: LACTATED RINGERS 1,000 ML 125 ML IV (00:36)
[2019-02-05] MEDS: HYDROCODONE/ACET 5/325 TABLET 2 TAB PO ×2 (02:53→08:29)
[2019-02-05] MEDS: CEFAZOLIN 2 GM/100 ML FROZ.PIGGY IV (05:06)
[2019-02-05 06:26] VITALS: BP 113/68; PULSE 70; RESP 16; TEMP 36.6; O2SAT 98
[2019-02-05 06:37] LABS: Hematocrit 31.4 % (36-46); Hemoglobin 10.9 g/dL (12.0-16.0)
[2019-02-05 08:00] VITALS: BP 124/89; PULSE 70; RESP 18; TEMP 36.4; O2SAT 98
[2019-02-05 08:26] VITALS: BP 156/79; PULSE 76
[2019-02-05] MEDS: carvediloL 25 MG TABLET PO (08:26)
[2019-02-05] MEDS: CANDESARTAN 16 MG TABLET 4 MG PO (08:26)
[2019-02-05] MEDS: ASPIRIN EC 81 MG TABLET PO (08:27)
--- NOTE | 2019-02-05 10:13 | PM.DS.1 ---
History of Present Illness History of Present Illness Date Patient Seen: 02/05/19 Time Patient Seen: 10:14 Chief complaint: Right Total Knee Arthroplasty Narrative: Hospital day 2, postop day 1 following right total knee arthroplasty by Dr. Yoo. Patient states she is doing well. Taking [place] for pain. Physical therapy felt she was stable to be home. She is scheduled go to [facility] in [place]. Discharge Providers Provider Date of admission: 02/04/19 10:25 Discharge Date: 02/05/19 Consults: 02/04/19 15:20 Consult to Discharge Planning Routine Comment: Consult to Physical Therapy Evaluate & Treat Comment: Physician Instructions: postop TKA protocol Consult to Respiratory Therapy Evaluate & Treat Comment: Physician Instructions: Evaluate and treat Discharge provider: Sergei Jaramillo PA-C Summary Hospital Course Discharge Diagnosis: Status post right total knee arthroplasty Hospital Course: Patient brought to hospital on 02/04/2019 for above noted surgery. She remained stable postoperatively. Progressed with physical therapy well. Ready for discharge home on postop day 1. Status at Discharge Cognitive/behavioral status at discharge: oriented Functional status at discharge: uses cane/walker Overall status at discharge: patient is progressing back to baseline Time Spent with Patient Time spent: Less than 30 minutes Exam Vital Signs (past 8 hours): - 02/05/19 06:26 02/05/19 08:00 02/05/19 08:26 Temperature 97.9 F 97.6 F Pulse Rate 70 70 76 Respiratory Rate 16 18 Blood Pressure 113/68 124/89 156/79 H Pulse Oximetry 98 98 Oxygen Delivery Method Room Air Oxygen Flow Rate 0 Narrative Exam Narrative: Alert, oriented no acute distress sitting in chair. Legs. Romario wrap an Aquacel dressing to right knee is dry without drainage or inflammation. No mild swelling. No calf pain or swelling. Pulses symmetrical. Objective Labs Result Diagrams: 02/05/19 05:47 Labs: Laboratory Results - last 24 hr 02/05/19 05:47 Hgb 10.9 L Hct 31.4 L Discharge Plan Discharge Plan Patient Disposition: Home Discharge comment: Discharge home today after cleared by PT. She has prescription at home for [place] 5/325 mg use ibuprofen as needed. Take aspirin 81 mg b.i.d. x1 month. Discharge orders & Medications Prescriptions: New aspirin 81 mg Tablet,Delayed Release (Dr/Ec) 81 mg PO BID Qty: 60 RF: 0 Continued carvedilol 25 mg Tablet 25 mg PO BID RF: 0 candesartan 4 mg Tablet 4 mg PO QAM RF: 0 acetaminophen [Tylenol Extra Strength] 500 mg Tablet 1,000 mg PO Q6H PRN (Reason: Pain) RF: 0 Zyrtec 10 mg Capsule 10 mg PO BEDTIME RF: 0 hydrocodone-acetaminophen 10-325 mg Tablet 1 tab PO Q4HR PRN (Reason: Pain, Moderate (4-6)) Qty: 40 RF: 0 Discharge Health Status Multidrug resistant organism: No MDRO Diet/Activity/Treatments Diet: Diet as Tolerated Activity: Ambulate as tolerated with walker as needed. Cold/Heat Therapy: Cold pack to right knee as needed Skin/Wound/Dressing Care Report to your healthcare provider any signs of infection, such as:: chills, fever, night sweats, increased pain, unusual drainage and unusual redness Dressing: Keep Aquacel dressing in place until postop visit. Take Romario wrap off tomorrow. Visit Report/Discharge Packet Instructions: DI for Knee Replacement Quality VTE Deep Vein Thrombosis/Pulmonary Embolism Present on Admission: No
--- NOTE | 2019-02-05 10:43 | PT.IIE ---
Current Diagnoses Unilateral primary osteoarthritis, right knee (02/04/19) Surgery Performed Operation Date: 02/04/19 12:45 Actual Procedures p Total Knee Arthroplasty(Right) - Harlan Yoo MD Surgical History (Last Updated 01/29/19 @ 10:58 by Sabrina Burgos RN) H/O cardiac radiofrequency ablation (Acute ~11/2014) History of arthroplasty of left knee (Acute 10/22/18) History of carpal tunnel surgery of right wrist (Acute) History of ear surgery (Acute) Hx of abdominoplasty (Acute) Hx of dilation and curettage (Acute) Hx of elbow surgery (Acute) Hx of removal of cyst (Acute) S/P epidural steroid injection (Acute) Medical History (Last Updated 01/29/19 @ 11:55 by Sabrina Burgos RN) Allergic rhinitis (Acute) Atrial fibrillation (Acute) Back pain (Acute) Bronchitis (Acute) Cardiac arrest (Acute ~2011) CHF (congestive heart failure) (Acute) Concussion (Acute ~2015) Diverticulitis (Acute) Hearing impaired (Acute) HTN (hypertension) (Acute) 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) LBBB (left bundle branch block) (Acute) Nonischemic cardiomyopathy (Acute) Osteoarthritis (Acute) PVT (paroxysmal ventricular tachycardia) (Acute) Seasonal allergies (Acute) Sensitive skin (Acute) Whiplash (Acute) Physical Therapy Inpatient Evaluation/Re-Eval M1 PT/OT-IP Prior Functional Status Start: 02/05/19 08:32 Freq: NEEDED Status: Active Protocol: Document 02/05/19 08:33 GLENDA (Rec: 02/05/19 08:52 GLENDA [id number]) Medical Review Prior Functional Status Medical History Reviewed Yes Diet/Fluid Consistency Regular Communication No noted deficits. Pt able to make needs known. Mobility and Gait Pt reports I with mobility and short distance ambulation. She states she used a SPC for longer distance ambulation d/t pain. Activities of Daily Living and IADL's Pt reports I with ADLs and IADLs. Prior Functional Level (Other details) Pt was able to drive prior to surgery. Pt had L TKA in October 2018. She states she was able to go home straight after that surgery and that her PT has been going well. She notes that she still doesn 't fully trust her L knee. Social History Household Members spouse,children Living Arrangements House Number of Floors (Floors) Two Floors Number of Stairs To Enter/Railing? 2 wide platform JANIE (no railing but does have handles on each side) Home Environment Standard Height Toilet,Tub/ Shower Home Equipment Front Wheel Walker,Straight Cane,Raised Toilet Seat w/ Armrests,Tub Transfer Bench, Hand Held Shower,Grab Bars Near Toilet,Grab Bars In Shower Employment Status Self-Employed Additional Social History Comment Pt lives in 2-story home in [place] with her . Pt notes that she is able to stay on the entry-level bottom floor.Pt's is retired and available to assist pt during the day. Her adult son and his and two children live on the top floor of the house and are also available to assist pt as needed. Pt's other adult son is home until early February. Pt has good home equipment which she states she acquired for her L TKA in October. M2 PT-IP Current Condition Start: 02/05/19 08:32 Freq: NEEDED Status: Active Protocol: Document 02/05/19 08:33 JG (Rec: 02/05/19 08:52 J [email or web address]) Physical Therapy Current Condition Current Condition Evaluation Date 02/05/19 Treatment Diagnosis R TKA, difficulty walking, limited activity tolerance Onset Date 02/04/19 Weight Bearing Status Weight Bearing Status Weight Bear as Tolerated M3 PT-IP Subjective Start: 02/05/19 08:32 Freq: NEEDED Status: Active Protocol: Document 02/05/19 08:33 JG (Rec: 02/05/19 08:52 J [email or web address]) Subjective Physical Therapy Visit Type Type Initial Evaluation Visit Start Time 08:06 Visit Stop Time 08:29 Total Visit Minutes 23 Notes IE led by MYAH Noel, supervised by PT Stalin. Khris present for session. Number of JACK SPOOLER TENDER Visits 0 Physical Therapy Visit Comments Patient Comments I am not in too much pain today. I had a little trouble the first time I got up to the bathroom but it didn't feel as bad this morning. Patient Goals Return home Therapy Pain Assessment Pain When Pain Assessed At Rest Pain Present Pain Present Pain Reported Location Right Knee Description Aching,Acute,With Movement Pain Management Techniques Distraction M4 PT-IP Mobility and Gait Start: 02/05/19 08:32 Freq: NEEDED Status: Active Protocol: Document 02/05/19 08:33 GLENDA (Rec: 02/05/19 08:52 NedShavon [email or web address]) PT-Transfer Assessment Sit to and From Stand Sit to and from Stand Contact Guard Assistance,Use of Upper Extremities Equipment Transfer Assistive Device Gait Belt,Front Wheeled Walker Orthotic/Prosthetic Devices or Brace: No Transfers Transfer Destination Chair Transfer Technique ambulate with FWW Transfer Ability Level of Assist Contact Guard Assistance,Use of Upper Extremities Comments Mobility Comments Pt up in chair upon assessment , states she had just returned from the bathroom. BP 160/61 which pt states is higher than her baseline, BP from monitor before mobilizing to bathroom 124/60. Completed heel slides with pt and pt demonstrates good ROM. Pt required no more than CGA for sit to stand and was able to stand SBA with UE support on FWW for ~3 minutes. Pt then ambulated to the stairs and back, required no more than CGA for stand to sit to chair. Pt demonstrates good safety awareness during session. At end of session BP 156/79. Pt did become mildly SOB with ambulation. Pt left in chair with in room and call light and needs within reach. Gait Assessment Gait Gait Assistance Required: Standby Assistance,Contact Guard Assist Distance (Feet) 100 Able to Maintain Weight Bearing Status Yes During Gait Assistive Devices Assistive Device Gait Belt,Front Wheeled Walker Orthotic/Prosthetic Devices or Brace: No Gait Deviations General Gait Pattern Antalgic,Decreased Stride Length,Flexed Trunk Factors Limiting Gait Function Factors Limiting Gait Function Decreased Activity Tolerance, Decreased Strength,Limited Range of Motion,Pain,Poor Balance Comments Gait Comments Pt ambulated ~100 ft to complete stair training and back to room with FWW. Pt required initial CGA but was able to transition to SBA during ambulation. Pt demonstrates gait 90% WNL with mildly decreased stride length and decreased WBing on R LE. Stair Climbing Assessment Evaluation Level of Assist On Stairs Contact Guard Assistance Devices Stair Climbing Assistive Devices Front Wheel Walker Technique/Endurance Stair Climbing Direction Ascend and Descend Stair Climbing Technique Step to Step Number of Steps Climbed 1 Query Text: Stair Climbing Set # Repetitions (reps) 2 Comments Stair Climbing Comments Pt ascended/descended platform step twice with FWW. Educated pt to use up with the good, down with the bad for stair climbing. Pt demonstrated initial hesitation as she stated she was not used to her L LE being the strong one . After initial cuing, pt able to complete stair climbing with CGA and min cuing. Disc with pt and to have brace walker during stair climbing for inc'd safety. PT-Balance Assessment Sitting Balance and Reactions Static Sitting Balance Ability Good Dynamic Sitting Balance Ability Good Standing Balance and Reactions Static Standing Balance Ability Good Dynamic Standing Balance Ability Fair Device Used FWW M5 PT-IP Objective Assessments Start: 02/05/19 08:32 Freq: NEEDED Status: Active Protocol: Document 02/05/19 08:33 JG (Rec: 02/05/19 08:52 JG [email or web address]) Orientation Orientation/Cognition Level of Alertness Alert Orientation Name,Age,Birthday,Month,Date, Year,Day of Week,Place, Situation Language Function Ability No Deficits Noted Safety Awareness Understands Safety Issues Memory Description No Deficits Noted Comments No noted cognitive or communication deficits. Pt demonstrated good safety awareness throughout session Gross Range of Motion Upper Extremity ROM Assessment Within Functional Limits Lower Extremity ROM Assessment Bilaterally Impaired Impairments L knee 0-120 dg R knee 5-90 dg Strength Upper Extremity Strength Assessment Within Functional Limits Lower Extremity Strength Assessment Bilaterally Impaired Hip 4+/5 Knee 4+/5 Ankle 4+/5 Muscle Tone Muscle Tone WNL Yes M6 PT-IP Treatment Start: 02/05/19 08:32 Freq: NEEDED Status: Active Protocol: Document 02/05/19 08:33 JG (Rec: 02/05/19 08:52 JG [email or web address]) Physical Therapy Treatment Exercises Exercises Heel Slides Education Education Provided Weight Bearing Status,Post-Op Packet,Safety Other Treatments Other Treatment Performed Educated pt on strategies for stair climbing, have brace walker for extra support . M7 PT-IP Assessment and Plan Start: 02/05/19 08:32 Freq: NEEDED Status: Active Protocol: Document 02/05/19 08:33 JG (Rec: 02/05/19 08:52 JG [email or web address]) PT Summary Assessment and Plan Potential Rehabilitation Potential Excellent Status of Condition at Evaluation Stable Summary Impairments Pain,ROM,Strength,Balance,Bed Mobility,Transfers,Gait, Activity Tolerance Assessment Summary Pt is low complexity 63 yo female 1 day s/p R TKA. Pt had a L TKA in October 2018. Pt required no more than CGA during mobility, ambulation, and stair climbing. Pt demonstrates good safety awareness throughout session and has good social support at home from her and two adult sons. Pt has been completing PT since her L TKA and will cont for her R TKA starting February 19. Pt is safe for d/c to home with assist once medically cleared. Frequency of Treatment Frequency Of Treatment Discharge Recommendations To Nursing Amount of Assist Needed 1 Person Assist Discharge Recommendations PT Discharge Recommendations Home with Assistance, Outpatient PT note reviewed by Stalin Gonzales PT
--- NOTE | 2019-02-05 11:47 | PC.NURSE ---
Patient was discharged to home with her . LAVERNE dressing remains in place, CDI without drainage, green light on. Patient states understanding of discharge instructions and home care handouts, and has no further questions or concerns at this time. IV discontinued intact. Patient has her pain medication and aspirin as prescribed already at home, and has follow up appointment scheduled. Instructed to notify surgeons office with questions or concerns. Escorted out via wheelchair with all belongings by CERAMICS TEACHER.
--- NOTE | 2019-02-05 12:11 | CM.DANOTE ---
DCP Assessment: EMR Reviewed: Patient is a 63 yr old female who was admitted for RTKA preformed by Dr. Yoo. PCP is Dr Aquino. CM/RN met with patient at the bedside and explained role. Patient was alert and oriented x3 and was very excited to go home. Patient lives with her in a two story home with her daughters family living on the top floor. Patient is a [facility] patient and has post op appointment set up for 02/10/2019. Patient is getting OP PT at PT in [place]. Patient has DME: FWW, Cane and shower bench to help when she is at home. I: Health care Management and self pay Plan: DC home with family when medically stable. no D/C planning needs noted CM department will follow to make sure not new D/C planning needs arise. Ella Loco RN Discharge Planning/Care Management CM Discharge Assessment Start: 02/05/19 12:09 Freq: Status: Discharge Protocol: Document 02/05/19 12:10 HS (Rec: 02/05/19 12:11 [id number]) Discharge Planning Assessment Assigned Pellet Post Inspector Ella Loco RN DPOA/Assigned Designee Name Mehul Murillo () Contact Information [phone] Advance Directives? No History Provided By Patient,Medical Record Has Patient been admitted in last 30 No days? Prior Living Arrangements House Household Members spouse,children Type of transporation used prior to Drives own vehicle admit Independent with ADL's Yes Is patient alert and oriented? Yes Caregiver for Another No DME Already Rented / Owned Bath Bench,FWW / Walker,Cane Patient/Family Preference OP PT Therapy Discharge Plan Home Transportation Arrangement Spouse Referrals Initiated None needed Whiteboard Updated in Patient Room with Yes name and ext. # of Pellet Post Inspector Review Status In Process Next Review Type Continued Stay Review Pre-Anesthesia Assessment Start: 01/22/19 09:48 Freq: Status: Discharge Protocol: Document 01/22/19 09:48 CAB (Rec: 01/22/19 10:17 CAB [id number]) Pre-Anesthesia Assessment Patient Information Reviewed Via Phone Assessment Assessment Completed With Patient Diagnostic Results EKG Comment Outside EKG scanned to record Primary Care Provider Majo Aquino Seen Specialist in Last 12 Months Yes Specialist Seen Desk Clerk,Orthopedist Primary Language South Korean Preferred Language South Korean Assistant Teaching Professor Required No Height 157.48 cm Weight 133.356 kg Body Mass Index (BMI) 53.7 Hearing Ability Hard of Hearing,Use of Hearing Aid Visual Assist Glasses Dentition Type Teeth, Natural Present,Teeth, Missing Barriers to Learning None Other Aids No Hx Anesthesia Reactions Yes: Sometimes I wake up too soon Hx Family Anesthesia Reaction No Hx Malignant Hyperthermia No Hx Blood Transfusions No Anesthesia Review Requested No alcohol intake current alcohol intake frequency holidays/special occasions only Smoking Status Former smoker how long ago did patient quit smoking Quit age [age] years old Substance Use Type does not use Pain Present Pain Reported Musculoskeletal Symptoms Abnormal Gait,Difficulty Walking,Joint Pain History of Falling (Recent or History of No ) Patient is completely paralyzed or No completely immobile Prosthesis or Orthotic Device Cane Mental Status Oriented to own ability Is patient on oxygen? No Does patient have CORREA/SOB No Hx Sleep Apnea No Currently Taking a Beta Chuck Yes: Carvedilol Can You Climb a Flight of Stairs Without No SOB Hx Chest Pain No Hx SOB No Hx Syncope or Dizziness No Anti-Coagulant Therapy No Has a Desk Clerk Yes: Dr. Palacios-visit Cardiac Testing Yes: Echo 09/05/18 EF 50% Hx Pacemaker/ICD Yes: Pacer form to surgery folder/scanned to record Comment Cardiac records scanned to record Diet Type At Home Regular dysphagia No Genitourinary Symptoms Low Back Pain Urinary Catheter Present No Hx Urinary Self Catheterization No Diabetes No Patient No Lactating No Hx Drug Resistant Organism No Presence of External or Internal Medical Yes: ICD/Pacer, left knee Devices prosthesis Have you traveled outside the [facility] in the last 30 days? Marital Status Lives With spouse,children Prior Living Arrangements House Number of Floors (Floors) Two Floors Support System Spouse Does the Patient Have Assistance After Yes Surgery Patient Discharge Plan Description Return Home Comment Pt advised overnight length of stay per surgeon's office Feels Safe in Current Environment Yes Been Physically Hurt or Threatened By a No Person in Current Environment Do you have thoughts of harming yourself None or others? Are you currently considering suicide? No Do you have a plan to hurt yourself or No Plan others? Do You Have Any Spiritual Beliefs That No May Affect Your HC Choices? Do You Have Any Cultural Practices That No May Affect Your HC Choices? Comment Scientology Who Can We Speak to About Patient's Care Family, friends Identifying Code for Release of Patient Declines to issue Information Health Care Proxy/Next of Kin Khris () Health Care Proxy Emergency Contact Name Khris () Emergency Contact Advance Directives? No Power of Branch Manager No PAC Instructions Do not shave/clip surgical site,Durable medical equipment ,Medications to take/avoid, Nasal antibiotic,No ETOH/ petroleum product on skin DOS, NPO,Post-op transportation,Pre -surgical wash,Sturdy shoes/ comfortable clothes,Do not bring valuables and remove jewelry
== END 2019-02-05 11:00 | disposition home or self-care (01) | DRG 470 ==
PROVIDERS: Admitting Provider Orthopaedic Surgery; Visit Provider Orthopaedic Surgery
PROC: 0SRC0JZ Replacement of Right Knee Joint with Synthetic Substitute, Open Approach (ICD-10-PCS; CPT 27447; principal; 2019-02-04 12:45)
DX: M17.11 Unilateral primary osteoarthritis, right knee (principal); I42.9 Cardiomyopathy, unspecified; Z68.43 Body mass index [BMI] 50.0-59.9, adult; Z96.652 Presence of left artificial knee joint; I50.9 Heart failure, unspecified; Z87.891 Personal history of nicotine dependence; E66.01 Morbid (severe) obesity due to excess calories; I45.4 Nonspecific intraventricular block; Z95.810 Presence of automatic (implantable) cardiac defibrillator
CPT/HCPCS: 36415; 73560; 85014; 85018; 97161; 97530; C1776; C9290; J0690; J1100; J2250; J2405; J2704; J3010

== ENCOUNTER 2021-06-08 05:59 | Inpatient (IN) | payer OTHER, SELFPAY ==
[2019-02-04 10:53] VITALS: BMI 53.7
[2021-06-05 07:21] VITALS: BMI 53.6
[2021-06-08] VITALS (16 sets, daily range): BP systolic 112–142; BP diastolic 45–76; PULSE 69–74; RESP 12–20; TEMP 36–36.7; O2SAT 96–98; BMI 53.6
--- NOTE | 2021-06-08 06:49 | DI.RAD.S_ITS ---
PROCEDURE: XR KNEE RT 1TO2V INDICATIONS: prosthesis placement TECHNIQUE: Two view(s) of the knee acquired. COMPARISON: [facility], [facility], XR KNEE RT 1TO2V, 02/04/2019, 14:29. FINDINGS: Bones: There has been removal of the tibial component of the knee arthroplasty. There is residual cement across the articular surface and filling proximal tibial cavity. Femoral component appears intact. The bones are in normal alignment. No unexpected fractures. Soft tissues: Overlying postoperative changes are noted. There is an intra-articular drain. External fixation hardware is present. IMPRESSION: 1. Removal of tibial component with expected residual material. Dictated by: Ani Vides M.D. on 06/08/2021 at 13:52 Approved by: Ani Vides M.D. on 06/08/2021 at 13:54
[2021-06-08] MEDS: PREGABALIN 75 MG CAPSULE PO (07:07)
[2021-06-08] MEDS: ACETAMINOPHEN 325 MG TABLET 975 MG PO (07:08)
[2021-06-08] MEDS: CELECOXIB 200 MG CAPSULE PO (07:08)
[2021-06-08] MEDS: LACTATED RINGERS 1,000 ML 42 ML IV ×2 (07:45→09:52)
--- NOTE | 2021-06-08 08:06 | PM.PREOP ---
Pre-operative Note COVID-19 COVID-19 status: Negative Interval Note History & Physical reviewed/Exam performed by Physician: Yes Changes to H&P: No
[2021-06-08] MEDS: CEFAZOLIN 3 GM IN 0.9 % NACL 3 GM/100 ML PLAST..BAG IV (08:40)
[2021-06-08] MEDS: TRANEXAMIC ACID 1,000 MG VIAL 1000 MG INJ (08:54)
--- NOTE | 2021-06-08 09:18 | SUR.OPER ---
Supine on padded OR bed. Pillow under head, arms secured on padded armboards <90 degree abduction. Safety belt across torso. Non-operative leg secured with tape over blanket over lower leg. Operative leg secured in DeMayo/Daniel/Nathe positioner. Foam padded brace at thigh of operative leg. Directed and approved by surgeon
[2021-06-08] MEDS: TOBRAMYCIN 1.2 GM VIAL 3.6 GM INTRA-ARTI (09:40)
[2021-06-08] MEDS: VANCOMYCIN 1,000 MG VIAL 2000 MG INTRA-ARTI (09:40)
--- NOTE | 2021-06-08 11:56 | P.OP_ITS ---
Operative Date/Time/Diagnoses Date of procedure: 06/08/21 Time of procedure: 11:57 Pre-op diagnosis: Septic right total knee arthroplasty Post-op diagnosis: same Procedure & Clinicians Procedure: Irrigation and debridement with implant removal right knee. Placement of temporary total knee arthroplasty with antibiotic cement. Same procedure as scheduled: Yes Indications: The patient presents today for irrigation debridement and removal of an infected/loose right total knee arthroplasty. The plan is to put in a temporary prosthesis with antibiotic cement. She will then be treated for at least 6 weeks with IV antibiotics until the infection is cleared. A second-stage revision knee arthroplasty will then be performed. The nature of the procedure including the risks and benefits, alternatives, postoperative course and expected outcome were discussed and all questions answered. Consent was obtained. Operative site confirmed and marked. Surgeon: Harlan Yoo Scientific Publications Editor: Aleyda Brown Anesthesia Type: General and Spinal Operative Notes Findings: The femoral and tibial components were not obviously loose. There was not gross purulence within the knee or under the implants. There was evidence of clear loosening and infection of the patellar component. This corresponded to the anterior draining sinus right over the patella. I could not find exactly where this tracked back to the patella. All components were removed without significant bone loss. All cement fragments were removed the knee was irrigated with 6 L of normal saline. A temporary prosthesis was placed with antibiotic cement. Closure Type: primary Specimen(s): other (Cultures and the prior implants were sent.) Prosthetic devices, grafts, tissues, transplants, or devices: Lesion 6 femur and 15 mm thick 3/4 polyethylene tray. Applied: implant(s) Estimated Blood Loss (mL): 100 Blood products transfused: none Tourniquet time (min): 130 Procedure in detail: The patient was taken operative suite and placed under general anesthesia. Spinal anesthesia was also given. The knee was then prepped and draped in usual sterile fashion. The knee was exsanguinated with Esmarch dressing and tourniquet raised to 300 torr. The previous incision was utilized excising the draining tract over the patella. This tracked did not appear to enter the knee but within the subacromial bursa. There was no real fluid collection or evidence of purulence deep. A medial capsulotomy was then performed. There was minimal fluid within the knee. Some fluid was taken and sent for culture. A complete synovectomy was performed. The synovial tissue was also sent for cultures. The femoral and tibial components were removed with osteotomes and an oscillating saw. There was some central bone loss on the femoral side but the mediolateral aspect notch were otherwise intact. There was some posterior bone loss on the tibial side but the anterior medial lateral cortex was intact. The femoral and tibial components did not appear to be grossly loose. All cement was removed. The patellar component was then removed. The patella was grossly loose with some purulent material. Further cultures were taken from the femur. The knee was copiously irrigated with 6 L of normal saline with Pulsavac irrigation. The knee was again inspected to make sure all cement had been removed. A lesion femoral component and a polyethylene tray were then cemented into place. The cement had both vancomycin and tobramycin. The cement was placed on the components 1st while the cement was drying. When the cement was in a doughy consistency it was then lightly impacted onto the femur and tibia. The knee was held in extension until the cement had fully cured. The wound was then copiously irrigated with normal saline. A drain was placed deep. The fascia was closed with interrupted 1. Vicryl sutures. Subcutaneous tissue closed with 2-0 Vicryl. Skin was closed with adelaida. A juan dressing was applied. She was placed into a hinged knee brace. She tolerated procedure well and was returned to the recovery room in good condition. Complications: none Post-operative Condition: stable Disposition: PACU Plan for aftercare: Patient will be started on vancomycin. Await cultures and sensitivities. She will be toe-touch weight-bearing initially on the right knee with a hinged knee brace. May increase up to 25% weight-bearing if comfortable. She may begin range of motion as tolerated.
--- NOTE | 2021-06-08 12:47 | PM.PROC.1 ---
Procedures Date/Time Date of procedure: 06/08/21 Time of procedure: 12:40 Nerve Block Time out performed: Yes Local anesthetic used: bupivacaine 0.5% Location of anesthetic used: RIGHT Amount of anesthesia used (mL): 30 Nerve blocks: femoral (adductor canal) Procedure successful: Yes Patient tolerated procedure: well and no complications Complications: none Additional comments: Femoral nerve block performed for post-op pain control at surgeon request. Patient was positioned with IV, O2, monitors and rescue meds available. Prepped and timeout performed. Target identified with continuous ultrasound guidance. 30mL of bupivicaine 0.5% was injected perineurally with intermittent aspiration and injection. No blood, no paresthesias, no acute complications. Ultrasound pic attained.
--- NOTE | 2021-06-08 12:49 | SUR.PHASEI ---
Block start time [1240] . Monitoring initiated and maintained throughout procedure. Oxygen and medications given per anesthesiologist instructions. Patient remained stable throughout procedure, no adverse reactions noted. Block end time [1243].
[2021-06-08] MEDS: LACTATED RINGERS 1,000 ML 100 ML IV (13:44)
[2021-06-08 14:55] LABS: Estimated Glomerular Filt Rate > 60 mL/min (>60)
[2021-06-08] MEDS: VANCOMYCIN 2,000 MG/400 ML PIGGYBACK 200 MG IV (15:53)
[2021-06-08] MEDS: ACETAMINOPHEN 325 MG TABLET 650 MG PO ×2 (15:53→20:16)
[2021-06-08] MEDS: LORATADINE 10 MG TABLET PO (20:16)
[2021-06-08] MEDS: LOSARTAN 25 MG TABLET PO (20:16)
[2021-06-08] MEDS: APIXABAN 5 MG TABLET PO (20:16)
[2021-06-08] MEDS: ASPIRIN EC 81 MG TABLET PO (20:16)
[2021-06-08] MEDS: DOCUSATE 100 MG CAPSULE PO (20:16)
[2021-06-08] MEDS: carvediloL 12.5 MG TABLET 37.5 MG PO (20:17)
[2021-06-09] VITALS (11 sets, daily range): BP systolic 118–139; BP diastolic 49–60; PULSE 70–72; RESP 16–18; TEMP 36.1–36.4; O2SAT 97–100
[2021-06-09] MEDS: HYDROMORPHONE 2 MG TABLET PO ×3 (05:58→22:05)
[2021-06-09 06:46] LABS: Hematocrit 32.9 % (36-46); Hemoglobin 11.2 g/dL (12.0-16.0)
--- NOTE | 2021-06-09 08:41 | PM.PNPO.1 ---
Subjective Subjective Date Patient Seen: 06/09/21 Time Patient Seen: 08:41 Interval history: Pain is mild to moderated. Denies fever or chills. No N/V. Exam Vital Signs (past 8 hours): - 06/09/21 01:22 06/09/21 02:00 06/09/21 06:00 Temperature 97.6 F 97.6 F Pulse Rate 70 70 Respiratory Rate 18 16 Blood Pressure 118/59 L 119/57 L Pulse Oximetry 98 97 97 06/09/21 07:29 Temperature Pulse Rate Respiratory Rate Blood Pressure Pulse Oximetry 98 Oxygen Delivery Method Room Air Oxygen Flow Rate 0 Const General: cooperative and comfortable Nutritional Appearance: obese (BMI 53.6) Orientation: alert and oriented x3 HENMT Head: normal to inspection Chest Chest: normal inspection of the chest Resp Effort & Inspection: normal respiratory effort and able to speak in complete sentences Skin Other: Dressing CDI. Extrem General: normal to inspection Right lower extremity: normal capillary refill Left lower extremity: normal capillary refill Other: Sensation intact bilat LE Objective Labs Result Diagrams: 06/09/21 06:07 06/08/21 13:35 Labs: Laboratory Results - last 24 hr 06/08/21 06/09/21 13:35 06:07 Hgb 11.2 L Hct 32.9 L Creatinine 0.71 Estimated GFR > 60 PFSH Medical History Allergic rhinitis Atrial fibrillation Back pain Bronchitis Cardiac arrest (~2011) CHF (congestive heart failure) Concussion (~2015) Diverticulitis Hearing impaired HTN (hypertension) ICD (implantable cardioverter-defibrillator) in place (~2011) LBBB (left bundle branch block) Nonischemic cardiomyopathy Osteoarthritis PVT (paroxysmal ventricular tachycardia) Seasonal allergies Sensitive skin Whiplash Surgical History H/O cardiac radiofrequency ablation (~11/2014) History of arthroplasty of left knee (10/22/18) History of arthroplasty of right knee (02/04/19) History of carpal tunnel surgery of right wrist History of ear surgery Hx of abdominoplasty Hx of bilateral cataract extraction (02/2021) Hx of dilation and curettage Hx of elbow surgery Hx of removal of cyst S/P epidural steroid injection Social History household members: spouse and children Smoking Status: Former smoker alcohol intake: current Assessment & Plan Post-op Postoperative Procedures: Procedures Operation Date: 06/08/21 07:45 Actual Procedure Side Surgeon p I&D, removal of TKA & placement of temporary TKA Right Harlan Yoo MD Postoperative day: 1 Postoperative status: doing well Postoperative plan narrative: Patient will be started on vancomycin. Await cultures and sensitivities. She will be toe-touch weight-bearing initially on the right knee with a hinged knee brace. May increase up to 25% weight-bearing if comfortable. She may begin range of motion as tolerated. Disposition: TBD Quality VTE Deep Vein Thrombosis/Pulmonary Embolism Present on Admission: No
[2021-06-09] MEDS: ASPIRIN EC 81 MG TABLET PO ×2 (09:24→20:22)
[2021-06-09] MEDS: DOCUSATE 100 MG CAPSULE PO ×2 (09:24→20:22)
[2021-06-09] MEDS: LOSARTAN 25 MG TABLET PO (09:24)
[2021-06-09] MEDS: APIXABAN 5 MG TABLET PO ×2 (09:24→20:19)
[2021-06-09] MEDS: ACETAMINOPHEN 325 MG TABLET 650 MG PO ×3 (09:25→20:22)
--- NOTE | 2021-06-09 09:26 | CM.DANOTE ---
DCP: Case received, EMR reviewed and met with patient. Introduced self and role. Was able to obtain information regarding patient's baseline activity level at home prior to surgery, as well as her current living situation. DCP assessment completed with information currently available. Patient is a 65 year old female who admitted yesterday morning to the care of the orthopedic team. PCP: Dr. Voss. Payer: confirmed: [employer]. Patient came to the hospital via private vehicle for a surgical procedure. Patient had irrigation debridement for a loose/infected right total knee arthoplasty. Patient had original knee surgery 2018. Met with patient in her room. She is alert and oriented, pleasant. She was sitting up in bed. She resides in [place] with her spouse, Mehul, and her children. She has been driving, and has a cane for home use. She has a couple of stairs to get into her home, but her spouse built her a ramp. She has spouse, and 4 children who work different shifts, to assist her at home. P: DCP to continue to follow. Patient should be able to go home when stable, pending cultures. Will need to see if she can go home on oral antibiotics, and patient will still need to work with P.T. Dorene Douglas RN/Harp Action Assembler Discharge Planning/Care Management CM Discharge Assessment Start: 06/09/21 09:25 Freq: Status: Active Protocol: Document 06/09/21 09:25 (Rec: 06/09/21 09:26 [id number]) Discharge Planning Assessment Assigned Grinder Operator Tool Carlton Douglas RN/Harp Action Assembler Advance Directives? No History Provided By Patient,Medical Record Prior Living Arrangements House Household Members spouse,children Type of transporation used prior to Drives own vehicle admit DME Already Rented / Owned Cane Patient/Family Preference OP PT Therapy Barriers to Discharge No Comment Patient has spouse and children at home Discharge Plan Home Transportation Arrangement Spouse Referrals Initiated None needed Whiteboard Updated in Patient Room with Yes name and ext. # of Grinder Operator Tool Review Status In Process Next Review Type Continued Stay Review Pre-Anesthesia Assessment Start: 05/31/21 11:37 Freq: Status: Active Protocol: Document 06/05/21 07:21 CAB (Rec: 05/31/21 12:24 CAB [id number]) Pre-Anesthesia Assessment Preferred Name Ellen Patient Information Reviewed Via Phone Assessment Assessment Completed With Patient H&P Completed Within 30 Days Yes Comment COVID screen @ [facility] 06/07/21 Primary Care Provider Majo Aquino Seen Specialist in Last 12 Months Yes Specialist Seen Adjunct Latin Professor,Opthamologist/ Washroom Operator,Orthopedist Primary Language Upper Sorbian Preferred Language Upper Sorbian Yeast Cake Cutter Required No Height 5 ft 2 in Weight 293 lb Body Mass Index (BMI) 53.6 Hearing Ability Hard of Hearing,Use of Hearing Aid Visual Assist Glasses Dentition Type Teeth, Natural Present,Teeth, Missing Barriers to Learning None Other Aids No Hx Anesthesia Reactions Yes: Sometimes I wake up too soon Hx Family Anesthesia Reaction No Hx Malignant Hyperthermia No Hx Blood Transfusions No Anesthesia Review Requested Yes: Surgeon requested re: Cardiac Chef Passenger Vessel No alcohol intake current alcohol intake frequency holidays/special occasions only Smoking Status Former smoker how long ago did patient quit smoking Quit age [age] years old Substance Use Type does not use Pain Present Pain Reported Musculoskeletal Symptoms Abnormal Gait,Difficulty Walking,Joint Pain History of Falling (Recent or History of No ) Patient is completely paralyzed or No completely immobile Prosthesis or Orthotic Device Cane Mental Status Oriented to own ability Is patient on oxygen? No Does patient have CORREA/SOB No Hx Sleep Apnea No CPAP/BIPAP use not prescribed Currently Taking a Beta Chuck Yes: Carvedilol Can You Climb a Flight of Stairs Without No SOB Hx Chest Pain No Hx SOB No Hx Syncope or Dizziness No Anti-Coagulant Therapy Yes: Jayne-pt will check w/ cardiology on when to hold Has a Adjunct Latin Professor Yes: Dr. Palmer-last visit 01/26/21 Hx Pacemaker/ICD Yes: Pacer form scanned and placed in surgery folder for dos Pacemaker Rep Required? No Comment Cardiac records to surgery folder for dos Diet Type At Home Regular dysphagia No Bladder Pattern Frequency,Nocturia Urinary Catheter Present No Hx Urinary Self Catheterization No Diabetes No Patient No Lactating No Hx Drug Resistant Organism No Presence of External or Internal Medical Yes: ICD/Pacer, bilateral knee Devices Have you had any close contact with No someone diagnosed with COVID-19? Received a COVID vaccine? Yes Received all doses? Yes Marital Status Lives With spouse,children Prior Living Arrangements House Number of Floors (Floors) Two Floors Support System Spouse Does the Patient Have Assistance After Yes Surgery Patient Discharge Plan Description Return Home Comment Pt advised overnight length of stay per surgeon Feels Safe in Current Environment Yes Been Physically Hurt or Threatened By a No Person in Current Environment Do you have thoughts of harming yourself None or others? Are you currently considering suicide? No Do you have a plan to hurt yourself or No Plan others? Do You Have Any Spiritual Beliefs That No May Affect Your HC Choices? Do You Have Any Cultural Practices That No May Affect Your HC Choices? Comment Scientology Who Can We Speak to About Patient's Care Family, friends Identifying Code for Release of Patient Declines to issue Information Health Care Proxy/Next of Kin Khris () Health Care Proxy Emergency Contact Name Khris () or Mehul (son ) [phone] Emergency Contact Advance Directives? No Power of Belt Builder Helper No PAC Instructions Do not shave/clip surgical site,Durable medical equipment ,Medications to take/avoid, Nasal antibiotic,No ETOH/ petroleum product on skin DOS, NPO,Post-op transportation, Sensory aids,Sturdy shoes/ comfortable clothes,Do not bring valuables and remove jewelry
[2021-06-09] MEDS: carvediloL 12.5 MG TABLET 37.5 MG PO ×2 (09:29→20:19)
--- NOTE | 2021-06-09 09:30 | PT.IIE ---
Current Diagnoses Broken internal right knee prosthesis, sequela (06/08/21) Surgery Performed Operation Date: 06/08/21 07:45 Actual Procedures p I&D, removal of TKA & placement of temporary TKA(Right) - Harlan Yoo MD Medical History (Last Reviewed 06/09/21 @ 08:45 by Connor Jerez PA-C) Allergic rhinitis Atrial fibrillation Back pain Bronchitis Cardiac arrest (~2011) CHF (congestive heart failure) Concussion (~2015) Diverticulitis Hearing impaired HTN (hypertension) ICD (implantable cardioverter-defibrillator) in place (~2011) LBBB (left bundle branch block) Nonischemic cardiomyopathy Osteoarthritis PVT (paroxysmal ventricular tachycardia) Seasonal allergies Sensitive skin Whiplash Physical Therapy Inpatient Evaluation/Re-Eval M1 PT/OT-IP Prior Functional Status Start: 06/09/21 13:06 Freq: NEEDED Status: Active Protocol: Document 06/09/21 09:30 AB (Rec: 06/09/21 13:23 AB [id number]) Medical Review Prior Functional Status Medical History Reviewed Yes Communication able to make needs known Mobility and Gait pt stated that she is modified independent with all mobilities and ambulation without AD but for the last 8 months, has been using a SPC on and off due to R knee issues Social History Household Members spouse,family,children Living Arrangements House Number of Floors (Floors) Two Floors Number of Stairs To Enter/Railing? pt stays on the main level of the house has a ramp to enter Home Environment Tub/Shower,Ramp Home Equipment Front Wheel Walker,Straight Cane,Tub Transfer Bench,Hand Held Shower,Grab Bars Near Toilet,Grab Bars In Shower Additional Social History Comment pt has her spouse, sons, DILs and grandsons at home with her M2 PT-IP Current Condition Start: 06/09/21 13:06 Freq: NEEDED Status: Active Protocol: Document 06/09/21 09:30 AB (Rec: 06/09/21 13:23 AB [id number]) Physical Therapy Current Condition Current Condition Evaluation Date 06/09/21 Treatment Diagnosis R TKA sepsis s/p I&D and antibiotic space; difficulty in walking Onset Date 06/08/21 M3 PT-IP Subjective Start: 06/09/21 13:06 Freq: NEEDED Status: Active Protocol: Document 06/09/21 09:30 AB (Rec: 06/09/21 13:23 [id number]) Subjective Physical Therapy Visit Type Type Initial Evaluation Visit Start Time 09:30 Visit Stop Time 10:30 Total Visit Minutes 60 Number of CONTRACT SHELTERED WORKSHOP SUPERVISOR Visits 0 Physical Therapy Visit Comments Patient Comments agreeable to do PT Therapy Pain Assessment Pain When Pain Assessed At Rest Pain Present Pain Present Pain Reported Location Right Knee Intensity 4 Scale Used Numeric (0 - 10) Pain Management Techniques Distraction,Modification of Treatment,Re-positioning, Timing of Activity with Medications M4 PT-IP Mobility and Gait Start: 06/09/21 13:06 Freq: NEEDED Status: Active Protocol: Document 06/09/21 09:30 AB (Rec: 06/09/21 13:23 [id number]) PT-Bed Mobility Assessment Supine to Sit Supine to Sit Standby Assistance PT-Transfer Assessment Sit to and From Stand Sit to and from Stand Maximum Assistance,1 Person Assistance,Use of Upper Extremities Equipment Transfer Assistive Device Gait Belt,Front Wheeled Walker Orthotic/Prosthetic Devices or Brace: No Transfers Transfer Destination Chair Transfer Technique ambulation Transfer Ability Level of Assist Moderate Assistance,1 Person Assistance,Use of Upper Extremities Comments Mobility Comments pt educated on RLE weight bearing restriction and precautions. completed hinged knee brace adjustments. completed supine to sit SBA. able to sit on EOB SBA. educated on sit<>stand techniques and ambulation techniques to adhere to weight bearing restriction. completed sit to stand max A and max cues x 5 attempts. pt tends to push with RLE for sit to stand and unable to adhere to TTWB. completed ambulation in room ~ 20 ft using FWW mod A and cues. pt agreed to sit up on chair. positioned on chair. call light and table placed within reach. informed pt that she will need a w/c for home use and pt agreed. pt will let her family know. Gait Assessment Gait Gait Assistance Required: Moderate Assistance Distance (Feet) 20 Able to Maintain Weight Bearing Status Yes During Gait Assistive Devices Assistive Device Gait Belt,Front Wheeled Walker Orthotic/Prosthetic Devices or Brace: No Gait Deviations General Gait Pattern Decreased Stride Length, Decreased Feet Clearance Factors Limiting Gait Function Factors Limiting Gait Function Decreased Activity Tolerance, Decreased Strength,Limited Range of Motion,Pain,Poor Balance,Poor Safety Awareness PT-Balance Assessment Sitting Balance and Reactions Static Sitting Balance Ability Good Dynamic Sitting Balance Ability Good Standing Balance and Reactions Static Standing Balance Ability Fair Dynamic Standing Balance Ability Poor Device Used FWW M5 PT-IP Objective Assessments Start: 06/09/21 13:06 Freq: NEEDED Status: Active Protocol: Document 06/09/21 09:30 AB (Rec: 06/09/21 13:23 AB [id number]) Orientation Orientation/Cognition Level of Alertness Alert Orientation Name,Place,Situation Language Function Ability No Deficits Noted Safety Awareness Decreased Safety Awareness Memory Description Short Term Impaired Muscle Tone Muscle Tone WNL Yes M6 PT-IP Treatment Start: 06/09/21 13:06 Freq: NEEDED Status: Active Protocol: Document 06/09/21 09:30 AB (Rec: 06/09/21 13:23 AB [id number]) Physical Therapy Treatment Education Education Provided Precautions,Weight Bearing Status,Safety M7 PT-IP Assessment and Plan Start: 06/09/21 13:06 Freq: NEEDED Status: Active Protocol: Document 06/09/21 09:30 AB (Rec: 06/09/21 13:23 AB [id number]) PT Summary Assessment and Plan Potential Rehabilitation Potential Fair Status of Condition at Evaluation Evolving Summary Impairments Pain,ROM,Strength,Balance, Coordination,Sensation,Tone, Cognition,Bed Mobility, Transfers,Gait,Activity Tolerance Assessment Summary pt requiring max A with sit to stand and mod A with ambulation using FWW. pt with TTWB on RLE affecting mobility. pt will have her family to assist her at home. informed pt regarding obtaining a w/c for home use. Goals Bed Mobility Goal Independent Transfer Goal Standby Assistance,Front Wheeled Walker Gait Goal Standby Assistance,Front Wheel Walker Gait Distance 50 Days to Meet Goals 10 Frequency of Treatment Frequency Of Treatment Twice a Day Treatment Plan Physical Therapy Treatment Plan Bed Mobility Training,Transfer Training,Gait Training, Therapeutic Exercise,Balance Retraining,Post Op Education, Discharge Planning,Hot or Cold Pack,Neuromuscular Re-ed, Coordination Retraining,Manual Therapy Precautions Brace R knee hinged brace locked in 0 degrees (can be unlock for gently ROM per ASHU Jerez) Weight Bearing Status Weight Bearing Status Touch Down Weight Bearing Allowed Weight Bearing Amount (enter % per Dr. Yoo op note: or #) (%) toe-touch weight-bearing initially on the right knee with a hinged knee brace. May increase up to 25% weight- bearing if comfortable. Recommendations To Nursing Amount of Assist Needed 1 Person Assist Discharge Recommendations PT Discharge Recommendations Home with Assistance,Home Health Equipment Needed for Home Before w/c Discharge Transportation Needs at Discharge Private Vehicle,Wheelchair/ Cabulance
--- NOTE | 2021-06-09 14:00 | PT.IPTN ---
Current Diagnoses Broken internal right knee prosthesis, sequela (06/08/21) Surgery Performed Operation Date: 06/08/21 07:45 Actual Procedures p I&D, removal of TKA & placement of temporary TKA(Right) - Harlan Yoo MD Physical Therapy Treatment Note M2 PT-IP Current Condition Start: 06/09/21 13:06 Freq: NEEDED Status: Active Protocol: Document 06/09/21 09:30 AB (Rec: 06/09/21 13:23 AB [email or web address]) Physical Therapy Current Condition Current Condition Evaluation Date 06/09/21 Treatment Diagnosis R TKA sepsis s/p I&D and antibiotic space; difficulty in walking Onset Date 06/08/21 M3 PT-IP Subjective Start: 06/09/21 13:06 Freq: NEEDED Status: Active Protocol: Document 06/09/21 14:00 AB (Rec: 06/09/21 17:06 AB [email or web address]) Subjective Physical Therapy Visit Type Type Treatment Note Visit Start Time 14:00 Visit Stop Time 14:56 Total Visit Minutes 56 Number of RIVER CROSSING SUPERVISOR Visits 0 Physical Therapy Visit Comments Patient Comments pt is agreeable to do PT Therapy Pain Assessment Pain Present Pain Present Denied Pain M4 PT-IP Mobility and Gait Start: 06/09/21 13:06 Freq: NEEDED Status: Active Protocol: Document 06/09/21 14:00 AB (Rec: 06/09/21 17:06 AB [email or web address]) PT-Bed Mobility Assessment Sit to Supine Sit to Supine Standby Assistance PT-Transfer Assessment Sit to and From Stand Sit to and from Stand Minimal Assistance,Moderate Assistance,1 Person Assistance ,Use of Upper Extremities Equipment Transfer Assistive Device Gait Belt,Front Wheeled Walker Orthotic/Prosthetic Devices or Brace: Yes Transfers Transfer Destination Bed Transfer Technique ambulated Transfer Ability Level of Assist Minimal Assistance,1 Person Assistance,Use of Upper Extremities Comments Mobility Comments pt sitting on chair and spouse in room. educated spouse on pt's weight bearing restrictions and knee precautions with knee brace on . pt completed sit to stand from chair min A and cues and ambulated in room ~ 20 ft using FWW min to mod A and cues. (+) SOB. pt sat on EOB . completed sit to supine SBA. positioned in bed. educated spouse on brace management. spouse was able to reposition and adjust pt's knee brace. call light and table placed within reach. spouse agreed to do caregiver training tomorrow at 930 am. Gait Assessment Gait Gait Assistance Required: Minimum Assistance,Moderate Assistance,1 Person Assist Distance (Feet) 20 Able to Maintain Weight Bearing Status Yes During Gait Assistive Devices Assistive Device Gait Belt,Front Wheeled Walker Orthotic/Prosthetic Devices or Brace: Yes Gait Deviations General Gait Pattern Decreased Stride Length, Decreased Feet Clearance Factors Limiting Gait Function Factors Limiting Gait Function Decreased Activity Tolerance, Decreased Sensation,Decreased Strength,Limited Range of Motion,Poor Balance, Respiratory Distress M5 PT-IP Objective Assessments Start: 06/09/21 13:06 Freq: NEEDED Status: Active Protocol: Document 06/09/21 09:30 AB (Rec: 06/09/21 13:23 AB [email or web address]) Orientation Orientation/Cognition Level of Alertness Alert Orientation Name,Place,Situation Language Function Ability No Deficits Noted Safety Awareness Decreased Safety Awareness Memory Description Short Term Impaired Muscle Tone Muscle Tone WNL Yes M6 PT-IP Treatment Start: 06/09/21 13:06 Freq: NEEDED Status: Active Protocol: Document 06/09/21 14:00 AB (Rec: 06/09/21 17:06 AB [email or web address]) Physical Therapy Treatment Education Education Provided Precautions,Weight Bearing Status,Safety Brace Education [place],Caregiver M7 PT-IP Assessment and Plan Start: 06/09/21 13:06 Freq: NEEDED Status: Active Protocol: Document 06/09/21 14:00 AB (Rec: 06/09/21 17:06 AB [email or web address]) PT Summary Assessment and Plan Potential Rehabilitation Potential Good Summary Impairments Pain,ROM,Strength,Balance, Coordination,Sensation,Tone, Cognition,Bed Mobility, Transfers,Gait,Activity Tolerance Progress Towards Goals Slow Progress due to Medical Issues,Slow Progress due to Activity Tolerance Assessment Summary caregiver training initiated with hinge brace management with spouse. will continue caregiver training tomorrow and set up at 930 am. spouse confirmed that he has rented a transport w/c for pt to use for home. stated that that is all the [employer] company has for rental. pt plans to go home and family to assist her at home. Goals Bed Mobility Goal Independent Transfer Goal Standby Assistance,Front Wheeled Walker Gait Goal Standby Assistance,Front Wheel Walker Gait Distance 50 Days to Meet Goals 10 Frequency of Treatment Frequency Of Treatment Twice a Day Treatment Plan Physical Therapy Treatment Plan Bed Mobility Training,Transfer Training,Gait Training, Therapeutic Exercise,Balance Retraining,Post Op Education, Discharge Planning,Hot or Cold Pack,Neuromuscular Re-ed, Coordination Retraining,Manual Therapy Precautions Brace R knee hinged brace locked in 0 degrees (can be unlock for gently ROM per ASHU Jerez) Weight Bearing Status Weight Bearing Status Touch Down Weight Bearing Allowed Weight Bearing Amount (enter % per Dr. Yoo op note: or #) (%) toe-touch weight-bearing initially on the right knee with a hinged knee brace. May increase up to 25% weight- bearing if comfortable. Recommendations To Nursing Amount of Assist Needed 1 Person Assist Discharge Recommendations PT Discharge Recommendations Home with Assistance,Home Health Transportation Needs at Discharge Private Vehicle,Wheelchair/ Cabulance
[2021-06-09 14:44] LABS: Estimated Glomerular Filt Rate > 60 mL/min (>60)
[2021-06-09] MEDS: VANCOMYCIN 1,500 MG/300 ML PIGGYBACK 200 MG IV (14:58)
[2021-06-09] MEDS: LORATADINE 10 MG TABLET PO (20:22)
[2021-06-10] VITALS (11 sets, daily range): BP systolic 110–159; BP diastolic 58–96; PULSE 69–73; RESP 17–19; TEMP 35.9–36.5; O2SAT 97–99
--- NOTE | 2021-06-10 06:58 | PM.PNPO.1 ---
Subjective Subjective Date Patient Seen: 06/10/21 Time Patient Seen: 06:58 Interval history: Pain is been [id number]. Denies fever or chills. No nausea or vomiting. Otherwise without complaints this morning Exam Vital Signs (past 8 hours): - 06/10/21 00:05 06/10/21 03:55 Temperature 96.8 F L 96.6 F L Pulse Rate 70 72 Respiratory Rate 17 19 Blood Pressure 144/71 H 136/68 Pulse Oximetry 97 97 Oxygen Delivery Method Room Air Oxygen Flow Rate 0 Narrative Exam Narrative: 65-year-old female resting comfortably in bed in no apparent distress. Matthew dressing is on and functioning. Scant drainage noted. Neurovascular status is intact distal right lower extremity. Const General: cooperative Nutritional Appearance: obese Orientation: alert Resp Effort & Inspection: normal respiratory effort and able to speak in complete sentences Objective Labs Result Diagrams: 06/09/21 06:07 06/09/21 13:45 Labs: Laboratory Results - last 24 hr 06/09/21 13:45 Creatinine 0.64 Estimated GFR > 60 [facility] CLIA ID [id number] [address] [place] [address] RUN DATE: 06/10/21 Specimen Inquiry PAGE 1 RUN TIME: 658 Name: Ellen Murillo Age/Sex: 65/F Attend Dr: Harlan Yoo MD Unit#: [id number] : 1955Location: 213-1 Re06/08/21 Disch: Status: ADM IN SPEC #: [id number] LAVELLE: 06/08/21 STATUS: RES REQ #: [id number] SPDESC: RECD: 06/08/[address]: Harlan Yoo MD SOURCE: Knee Rt ENTR: 06/08/[address]: FAX TO: ORDERED: WOUND Cx and GS COMMENTS: Comment Femoral Canal- Aerobic, Anaerobic Procedure Result Verified Site Gram Stain Final 06/08/21-1409 No Organism Seen No organisms seen White blood cells Few WBCs Aerobic Culture for wounds Preliminary 06/09/21 No growth. Anaerobic Culture Pending Procedure Result Verified Site Gram Stain Final 06/08/21-1413 No Organism Seen No organisms seen White blood cells Few WBCs Aerobic Culture for wounds Preliminary 06/09/21-946 No growth. Anaerobic Culture Pending [facility] Medical History Allergic rhinitis Atrial fibrillation Back pain Bronchitis Cardiac arrest (~2011) CHF (congestive heart failure) Concussion (~2015) Diverticulitis Hearing impaired HTN (hypertension) ICD (implantable cardioverter-defibrillator) in place (~2011) LBBB (left bundle branch block) Nonischemic cardiomyopathy Osteoarthritis PVT (paroxysmal ventricular tachycardia) Seasonal allergies Sensitive skin Whiplash Surgical History H/O cardiac radiofrequency ablation (~11/2014) History of arthroplasty of left knee (10/22/18) History of arthroplasty of right knee (02/04/19) History of carpal tunnel surgery of right wrist History of ear surgery Hx of abdominoplasty Hx of bilateral cataract extraction (02/2021) Hx of dilation and curettage Hx of elbow surgery Hx of removal of cyst S/P epidural steroid injection Social History household members: spouse, family and children Smoking Status: Former smoker alcohol intake: current Assessment & Plan Post-op Postoperative Procedures: Procedures Operation Date: 06/08/21 07:45 Actual Procedure Side Surgeon p I&D, removal of TKA & placement of temporary TKA Right Harlan Yoo MD Postoperative day: 2 Postoperative status: doing well Postoperative status narrative: Patient stable status post irrigation debridement with implant removal right knee. Placement of temporary total knee arthroplasty with antibiotic cement on June 08 2021 Postoperative plan narrative: Patient will be started on vancomycin. Await cultures and sensitivities. She will be toe-touch weight-bearing initially on the right knee with a hinged knee brace. May increase up to 25% weight-bearing if comfortable. She may begin range of motion as tolerated. Disposition to be determined once cultures are final Quality VTE Deep Vein Thrombosis/Pulmonary Embolism Present on Admission: No
[2021-06-10] MEDS: APIXABAN 5 MG TABLET PO ×2 (08:18→21:20)
[2021-06-10] MEDS: ACETAMINOPHEN 325 MG TABLET 650 MG PO ×3 (08:18→21:22)
[2021-06-10] MEDS: LOSARTAN 25 MG TABLET PO ×2 (08:18→21:20)
[2021-06-10] MEDS: DOCUSATE 100 MG CAPSULE PO ×2 (08:18→21:24)
[2021-06-10] MEDS: ASPIRIN EC 81 MG TABLET PO ×2 (08:18→21:22)
[2021-06-10] MEDS: carvediloL 12.5 MG TABLET 37.5 MG PO ×2 (08:22→21:22)
--- NOTE | 2021-06-10 09:31 | PT.IPTN ---
Current Diagnoses Broken internal right knee prosthesis, sequela (06/08/21) Surgery Performed Operation Date: 06/08/21 07:45 Actual Procedures p I&D, removal of TKA & placement of temporary TKA(Right) - Harlan Yoo MD Physical Therapy Treatment Note M2 PT-IP Current Condition Start: 06/09/21 13:06 Freq: NEEDED Status: Active Protocol: Document 06/09/21 09:30 AB (Rec: 06/09/21 13:23 AB [email or web address]) Physical Therapy Current Condition Current Condition Evaluation Date 06/09/21 Treatment Diagnosis R TKA sepsis s/p I&D and antibiotic space; difficulty in walking Onset Date 06/08/21 M3 PT-IP Subjective Start: 06/09/21 13:06 Freq: NEEDED Status: Active Protocol: Document 06/10/21 09:31 AB (Rec: 06/10/21 13:28 AB [email or web address]) Subjective Physical Therapy Visit Type Type Treatment Note Visit Start Time 09:31 Visit Stop Time 10:00 Total Visit Minutes 29 Number of YOUTH COORDINATOR Visits 0 Physical Therapy Visit Comments Patient Comments agreeable to do PT Therapy Pain Assessment Pain When Pain Assessed At Rest Pain Present Pain Present Pain Reported Location Right Knee Intensity 4 Scale Used Numeric (0 - 10) M4 PT-IP Mobility and Gait Start: 06/09/21 13:06 Freq: NEEDED Status: Active Protocol: Document 06/10/21 09:31 AB (Rec: 06/10/21 13:28 AB [id number]) PT-Bed Mobility Assessment Supine to Sit Supine to Sit Standby Assistance PT-Transfer Assessment Sit to and From Stand Sit to and from Stand Contact Guard Assistance, Minimal Assistance,1 Person Assistance,Use of Upper Extremities Equipment Transfer Assistive Device Gait Belt,Front Wheeled Walker Orthotic/Prosthetic Devices or Brace: No Transfers Transfer Destination Chair Transfer Technique ambulated Transfer Ability Level of Assist Contact Guard Assistance, Minimal Assistance,1 Person Assistance,Use of Upper Extremities Comments Mobility Comments pt completed supine to sit SBA . able to sit on EOB SBA. caregiver training conducted. educated spouse on how to use safety belt and how to assist pt. spouse was able to put safety belt on and assisted pt with sit to stand x 4 reps. able to maintain TTWB on RLE. ambulated in room with spouse assisting using FWW min A and cues. pt agreed to sit on the chair. positioned on the chair. call light and table placed within reach. reviewed knee brace management . pt completed gently ROM on R Knee. pt and spouse without further concerns. Gait Assessment Gait Gait Assistance Required: Minimum Assistance,1 Person Assist Distance (Feet) 25 Able to Maintain Weight Bearing Status No During Gait Assistive Devices Assistive Device Gait Belt,Front Wheeled Walker Orthotic/Prosthetic Devices or Brace: No Gait Deviations General Gait Pattern Decreased Stride Length, Decreased Feet Clearance Factors Limiting Gait Function Factors Limiting Gait Function Decreased Sensation,Decreased Strength,Limited Range of Motion,Pain,Poor Balance M5 PT-IP Objective Assessments Start: 06/09/21 13:06 Freq: NEEDED Status: Active Protocol: Document 06/09/21 09:30 AB (Rec: 06/09/21 13:23 AB [email or web address]) Orientation Orientation/Cognition Level of Alertness Alert Orientation Name,Place,Situation Language Function Ability No Deficits Noted Safety Awareness Decreased Safety Awareness Memory Description Short Term Impaired Muscle Tone Muscle Tone WNL Yes M6 PT-IP Treatment Start: 06/09/21 13:06 Freq: NEEDED Status: Active Protocol: Document 06/10/21 09:31 AB (Rec: 06/10/21 13:28 AB [email or web address]) Physical Therapy Treatment Education Education Provided Safety M7 PT-IP Assessment and Plan Start: 06/09/21 13:06 Freq: NEEDED Status: Active Protocol: Document 06/10/21 09:31 AB (Rec: 06/10/21 13:28 AB [email or web address]) PT Summary Assessment and Plan Potential Rehabilitation Potential Good Summary Impairments Pain,ROM,Strength,Balance, Coordination,Sensation,Tone, Cognition,Bed Mobility, Transfers,Gait,Activity Tolerance Progress Towards Goals Slow Progress due to Medical Issues Assessment Summary caregiver training conducted and spouse is able to assist pt safely. pt may go home when medically stable. Goals Bed Mobility Goal Independent Transfer Goal Standby Assistance,Front Wheeled Walker Gait Goal Standby Assistance,Front Wheel Walker Gait Distance 50 Days to Meet Goals 10 Frequency of Treatment Frequency Of Treatment Twice a Day Treatment Plan Physical Therapy Treatment Plan Bed Mobility Training,Transfer Training,Gait Training, Therapeutic Exercise,Balance Retraining,Post Op Education, Discharge Planning,Hot or Cold Pack,Neuromuscular Re-ed, Coordination Retraining,Manual Therapy Precautions Brace R knee hinged brace locked in 0 degrees (can be unlock for gently ROM per ASHU Jerez) Weight Bearing Status Weight Bearing Status Touch Down Weight Bearing Allowed Weight Bearing Amount (enter % per Dr. Yoo op note: or #) (%) toe-touch weight-bearing initially on the right knee with a hinged knee brace. May increase up to 25% weight- bearing if comfortable. Recommendations To Nursing Amount of Assist Needed 1 Person Assist Discharge Recommendations PT Discharge Recommendations Home with Assistance,Home Health Transportation Needs at Discharge Private Vehicle,Wheelchair/ Cabulance
--- NOTE | 2021-06-10 10:56 | PC.NURSE ---
Addendum entered by David Brock R.N. 06/10/21 16:40: Pt continues through the day, working with PT up with fww and sba. continues attentive at bedside. Original Note: Pt alert and oriented. attentive at bedside. Brace and drains intact. Pt offers no overt c/o pain appears relaxed, RR even and unlaboured PT at beside for training.
--- NOTE | 2021-06-10 14:10 | PT.IPTN ---
Current Diagnoses Broken internal right knee prosthesis, sequela (06/08/21) Surgery Performed Operation Date: 06/08/21 07:45 Actual Procedures p I&D, removal of TKA & placement of temporary TKA(Right) - Harlan Yoo MD Physical Therapy Treatment Note M2 PT-IP Current Condition Start: 06/09/21 13:06 Freq: NEEDED Status: Active Protocol: Document 06/09/21 09:30 AB (Rec: 06/09/21 13:23 AB [email or web address]) Physical Therapy Current Condition Current Condition Evaluation Date 06/09/21 Treatment Diagnosis R TKA sepsis s/p I&D and antibiotic space; difficulty in walking Onset Date 06/08/21 M3 PT-IP Subjective Start: 06/09/21 13:06 Freq: NEEDED Status: Active Protocol: Document 06/10/21 14:10 AB (Rec: 06/10/21 14:53 AB [email or web address]) Subjective Physical Therapy Visit Type Type Treatment Note Visit Start Time 14:10 Visit Stop Time 14:38 Total Visit Minutes 28 Number of [employer]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 Visits 0 Physical Therapy Visit Comments Patient Comments agreeable to do PT M4 PT-IP Mobility and Gait Start: 06/09/21 13:06 Freq: NEEDED Status: Active Protocol: Document 06/10/21 14:10 AB (Rec: 06/10/21 14:53 AB [email or web address]) PT-Bed Mobility Assessment Sit to Supine Sit to Supine Standby Assistance PT-Transfer Assessment Sit to and From Stand Sit to and from Stand Contact Guard Assistance,1 Person Assistance,Use of Upper Extremities Equipment Transfer Assistive Device Front Wheeled Walker Orthotic/Prosthetic Devices or Brace: No Transfers Transfer Destination Toilet Transfer Technique ambulated Transfer Ability Level of Assist Contact Guard Assistance,1 Person Assistance,Use of Upper Extremities Comments Mobility Comments pt sitting on chair and agreed to do PT. completed sit to stand CGA and cues and ambulatedin room ~ 40 ft using FWW CGA and ambulated to the toilet. completed toileting needs SBA. ambulated from the toilet to the sink using FWW and able to maintain standing leaning against the counter while completing handwashing CGA. ambulated to the bed using FWW CGA. completed sit to supine SBA. Doff knee brace for adjustment. pt completed gentle ROM on R knee and ankle pumps. spouse donned R hinged brace back on pt and completed. positioned pt on the bed. call light and table placed within reach. Gait Assessment Gait Gait Assistance Required: Contact Guard Assist Distance (Feet) 40 Able to Maintain Weight Bearing Status Yes During Gait Assistive Devices Assistive Device Gait Belt,Front Wheeled Walker Orthotic/Prosthetic Devices or Brace: No Gait Deviations General Gait Pattern Decreased Stride Length, Decreased Feet Clearance Factors Limiting Gait Function Factors Limiting Gait Function Decreased Activity Tolerance, Decreased Strength,Difficulty Following Directions,Limited Range of Motion,Poor Balance, Respiratory Distress M5 PT-IP Objective Assessments Start: 06/09/21 13:06 Freq: NEEDED Status: Active Protocol: Document 06/09/21 09:30 AB (Rec: 06/09/21 13:23 AB [email or web address]) Orientation Orientation/Cognition Level of Alertness Alert Orientation Name,Place,Situation Language Function Ability No Deficits Noted Safety Awareness Decreased Safety Awareness Memory Description Short Term Impaired Muscle Tone Muscle Tone WNL Yes M6 PT-IP Treatment Start: 06/09/21 13:06 Freq: NEEDED Status: Active Protocol: Document 06/10/21 14:10 AB (Rec: 06/10/21 14:53 AB [email or web address]) Physical Therapy Treatment Exercises Exercises Ankle Pumps,Heel Slides Education Education Provided Safety Brace Education Bella Cárdenasing,Caregiver M7 PT-IP Assessment and Plan Start: 06/09/21 13:06 Freq: NEEDED Status: Active Protocol: Document 06/10/21 14:10 AB (Rec: 06/10/21 14:53 AB [email or web address]) PT Summary Assessment and Plan Potential Rehabilitation Potential Good Summary Impairments Pain,ROM,Strength,Balance, Coordination,Sensation,Tone, Cognition,Bed Mobility, Transfers,Gait,Activity Tolerance Progress Towards Goals Progressing Toward Goals Assessment Summary pt progressing with mobility and able to maintain TTWB on RLE. pt plans to go home and spouse to assist her. pt may go home when medically stable. Goals Bed Mobility Goal Independent Transfer Goal Standby Assistance,Front Wheeled Walker Gait Goal Standby Assistance,Front Wheel Walker Gait Distance 50 Days to Meet Goals 10 Frequency of Treatment Frequency Of Treatment Twice a Day Treatment Plan Physical Therapy Treatment Plan Bed Mobility Training,Transfer Training,Gait Training, Therapeutic Exercise,Balance Retraining,Post Op Education, Discharge Planning,Hot or Cold Pack,Neuromuscular Re-ed, Coordination Retraining,Manual Therapy Precautions Brace R knee hinged brace locked in 0 degrees (can be unlock for gently ROM per ASHU Jerez) Weight Bearing Status Allowed Weight Bearing Amount (enter % per Dr. Yoo op note: or #) (%) toe-touch weight-bearing initially on the right knee with a hinged knee brace. May increase up to 25% weight- bearing if comfortable. Recommendations To Nursing Amount of Assist Needed 1 Person Assist Discharge Recommendations PT Discharge Recommendations Home with Assistance,Home Health Transportation Needs at Discharge Private Vehicle,Wheelchair/ Cabulance
[2021-06-10] MEDS: VANCOMYCIN 1,500 MG/300 ML PIGGYBACK 200 MG IV (15:00)
[2021-06-10] MEDS: LORATADINE 10 MG TABLET PO (21:23)
[2021-06-10] MEDS: HYDROMORPHONE 2 MG TABLET PO (22:38)
[2021-06-11] VITALS (11 sets, daily range): BP systolic 128–172; BP diastolic 48–91; PULSE 70–72; RESP 16–98; TEMP 36.4–36.8; O2SAT 98–99
[2021-06-11 06:19] LABS: Estimated Glomerular Filt Rate > 60 mL/min (>60)
[2021-06-11] MEDS: carvediloL 12.5 MG TABLET 37.5 MG PO ×2 (09:07→20:42)
[2021-06-11] MEDS: ASPIRIN EC 81 MG TABLET PO ×2 (09:07→20:41)
[2021-06-11] MEDS: ACETAMINOPHEN 325 MG TABLET 650 MG PO ×3 (09:07→20:41)
[2021-06-11] MEDS: LOSARTAN 25 MG TABLET PO ×2 (09:10→20:54)
[2021-06-11] MEDS: APIXABAN 5 MG TABLET PO ×2 (09:10→20:41)
[2021-06-11] MEDS: DOCUSATE 100 MG CAPSULE PO ×2 (09:10→20:41)
--- NOTE | 2021-06-11 10:18 | PT.IPTN ---
Current Diagnoses Broken internal right knee prosthesis, sequela (06/08/21) Surgery Performed Operation Date: 06/08/21 07:45 Actual Procedures p I&D, removal of TKA & placement of temporary TKA(Right) - Harlan Yoo MD Physical Therapy Treatment Note M2 PT-IP Current Condition Start: 06/09/21 13:06 Freq: NEEDED Status: Active Protocol: Document 06/09/21 09:30 AB (Rec: 06/09/21 13:23 AB [id number]) Physical Therapy Current Condition Current Condition Evaluation Date 06/09/21 Treatment Diagnosis R TKA sepsis s/p I&D and antibiotic space; difficulty in walking Onset Date 06/08/21 M3 PT-IP Subjective Start: 06/09/21 13:06 Freq: NEEDED Status: Active Protocol: Document 06/11/21 10:18 AW (Rec: 06/11/21 10:43 AW [id number]) Subjective Physical Therapy Visit Type Type Treatment Note Visit Start Time 10:03 Visit Stop Time 10:18 Total Visit Minutes 15 Number of ALLOY WEIGHER Visits 0 Physical Therapy Visit Comments Patient Comments agreeable to do PT Therapy Pain Assessment Pain When Pain Assessed At Rest Pain Present Pain Present Pain Reported Location Right Knee Intensity 3 Scale Used Numeric (0 - 10) M4 PT-IP Mobility and Gait Start: 06/09/21 13:06 Freq: NEEDED Status: Active Protocol: Document 06/11/21 10:18 AW (Rec: 06/11/21 10:43 AW [id number]) PT-Transfer Assessment Sit to and From Stand Sit to and from Stand Contact Guard Assistance,1 Person Assistance,Use of Upper Extremities Equipment Transfer Assistive Device Gait Belt,Front Wheeled Walker Orthotic/Prosthetic Devices or Brace: Yes Transfers Transfer Destination Chair Transfer Technique ambulated Transfer Ability Level of Assist Contact Guard Assistance,1 Person Assistance,Use of Upper Extremities Comments Mobility Comments Pt sitting on chair as PT arrived. Agreed to do seated knee flexion with brace on. Pt 's spouse able to don brace with min cues. Pt stood CGA and ambulated in the room CGA before transferring back to the chair CGA. Left pt with fresh ice for R knee. Gait Assessment Gait Gait Assistance Required: Contact Guard Assist Distance (Feet) 35 Able to Maintain Weight Bearing Status Yes During Gait Assistive Devices Assistive Device Gait Belt,Front Wheeled Walker Orthotic/Prosthetic Devices or Brace: Yes Gait Deviations General Gait Pattern Decreased Stride Length, Decreased Feet Clearance Factors Limiting Gait Function Factors Limiting Gait Function Decreased Activity Tolerance, Decreased Strength,Difficulty Following Directions,Limited Range of Motion,Pain,Poor Balance Comments Gait Comments Pt able to maintain TTWB <25% WB RLE. M5 PT-IP Objective Assessments Start: 06/09/21 13:06 Freq: NEEDED Status: Active Protocol: Document 06/09/21 09:30 AB (Rec: 06/09/21 13:23 AB [id number]) Orientation Orientation/Cognition Level of Alertness Alert Orientation Name,Place,Situation Language Function Ability No Deficits Noted Safety Awareness Decreased Safety Awareness Memory Description Short Term Impaired Muscle Tone Muscle Tone WNL Yes M6 PT-IP Treatment Start: 06/09/21 13:06 Freq: NEEDED Status: Active Protocol: Document 06/11/21 10:18 AW (Rec: 06/11/21 10:43 AW [id number]) Physical Therapy Treatment Exercises Exercises Ankle Pumps,Seated Knee Flexion/Extension Education Education Provided Weight Bearing Status,Safety Brace Education Donning,[place],Caregiver M7 PT-IP Assessment and Plan Start: 06/09/21 13:06 Freq: NEEDED Status: Active Protocol: Document 06/11/21 10:18 AW (Rec: 06/11/21 10:43 AW [id number]) PT Summary Assessment and Plan Potential Rehabilitation Potential Good Summary Impairments Pain,ROM,Strength,Balance, Coordination,Sensation,Tone, Cognition,Bed Mobility, Transfers,Gait,Activity Tolerance Progress Towards Goals Progressing Toward Goals Assessment Summary Pt able to maintain TTWB <25% WB RLE during gait consistent with household distances. Pt has ramp to enter home. PT recommends BSC for night time use and for energy conservation as needed. Pt states she can borrow one from her sister. Goals Bed Mobility Goal Independent Transfer Goal Standby Assistance,Front Wheeled Walker Gait Goal Standby Assistance,Front Wheel Walker Gait Distance 50 Days to Meet Goals 10 Frequency of Treatment Frequency Of Treatment Twice a Day Treatment Plan Physical Therapy Treatment Plan Bed Mobility Training,Transfer Training,Gait Training, Therapeutic Exercise,Balance Retraining,Post Op Education, Discharge Planning,Hot or Cold Pack,Neuromuscular Re-ed, Coordination Retraining,Manual Therapy Precautions Brace R knee hinged brace locked in 0 degrees (can be unlock for gently ROM per ASHU Jerez) Weight Bearing Status Weight Bearing Status Touch Down Weight Bearing Allowed Weight Bearing Amount (enter % per Dr. Yoo op note: or #) (%) toe-touch weight-bearing initially on the right knee with a hinged knee brace. May increase up to 25% weight- bearing if comfortable. Recommendations To Nursing Amount of Assist Needed Standby Assistance Discharge Recommendations PT Discharge Recommendations Home with Assistance,Home Health Transportation Needs at Discharge Private Vehicle,Wheelchair/ Cabulance
--- NOTE | 2021-06-11 11:27 | P.PN_ITS ---
Exam Vital Signs (past 8 hours): - 06/11/21 04:00 06/11/21 08:00 06/11/21 09:07 Temperature 97.6 F 98.2 F Pulse Rate 71 70 70 Respiratory Rate 98 H 18 Blood Pressure 139/69 172/91 H 172/91 H Pulse Oximetry 98 98 06/11/21 09:10 Temperature Pulse Rate 70 Respiratory Rate Blood Pressure 172/91 H Pulse Oximetry Oxygen Delivery Method Room Air Oxygen Flow Rate 0 Objective Labs Result Diagrams: 06/09/21 06:07 06/11/21 05:25 Labs: Laboratory Results - last 24 hr 06/11/21 05:25 Creatinine 0.64 Estimated GFR > 60 PFSH Medical History Allergic rhinitis Atrial fibrillation Back pain Bronchitis Cardiac arrest (~2011) CHF (congestive heart failure) Concussion (~2015) Diverticulitis Hearing impaired HTN (hypertension) ICD (implantable cardioverter-defibrillator) in place (~2011) LBBB (left bundle branch block) Nonischemic cardiomyopathy Osteoarthritis PVT (paroxysmal ventricular tachycardia) Seasonal allergies Sensitive skin Whiplash Surgical History H/O cardiac radiofrequency ablation (~11/2014) History of arthroplasty of left knee (10/22/18) History of arthroplasty of right knee (02/04/19) History of carpal tunnel surgery of right wrist History of ear surgery Hx of abdominoplasty Hx of bilateral cataract extraction (02/2021) Hx of dilation and curettage Hx of elbow surgery Hx of removal of cyst S/P epidural steroid injection Social History household members: spouse, family and children Smoking Status: Former smoker alcohol intake: current Assessment & Plan Assessment & Plan narrative: 65 yo F s/p revision knee explant for infected TKA. Patient is awaiting final wound culture, currently no growth. On exam, patient's dressing is clean dry intact. No s/s of DVT, neurovascularly intact. Will discontinue HV drain. Will follow final culture, if no growth final result then patient will need 6 weeks of IV vancomycin. Time Spent With Patient Critical Care time: I spent a total of [] minutes of critical care time on this patient's care toda y; this time is exclusive of procedural time. Quality VTE Deep Vein Thrombosis/Pulmonary Embolism Present on Admission: No
--- NOTE | 2021-06-11 14:13 | CM.DPC ---
DCP Cont: Spoke to Dr. Huff, orthopedic. He indicated, if there is growth on the culture, could go home on oral ABO, if no growth, likely 6 weeks of Vancomycin. Stated, should no more today. If she does need IV ABO, will get PICC line tomorrow. Went ahead and faxed over referral to [facility] including labs, med sheets, face sheet, H&P, today's orthopedic note. She does [employer], unknown coverage at this time, [facility] would have to run it by insurance. P: DCP to continue to follow closely for needs. There is a chance that patient may need prolonged IV ABO. [facility] has been sent referral. Dorene Douglas RN/Folder Operator
[2021-06-11] MEDS: HYDROMORPHONE 2 MG TABLET PO (14:24)
[2021-06-11 15:48] LABS: Vancomycin Trough 7.5 ug/mL (10-20)
[2021-06-11] MEDS: VANCOMYCIN 1,500 MG/300 ML PIGGYBACK 200 MG IV (16:10)
--- NOTE | 2021-06-11 17:08 | PC.NURSE ---
Pt is AxOx4, needs 1 person assistance and cooperative. Hemovac is removed today and pt still has brace on R knee. pt's lab culture has preliminary result: no growth. Pt is on IV Vanco. pt c/o pain and recieved PO 2mg Dilaudid and scheduled Tylenol with good effect.
[2021-06-11 18:09] LABS: Vancomycin Peak 28.8 ug/mL (20-40)
[2021-06-11] MEDS: LORATADINE 10 MG TABLET PO (20:42)
[2021-06-11] MEDS: VANCOMYCIN PEAK 1 REQUEST MISC (20:50)
[2021-06-11] MEDS: SODIUM CHLORIDE 0.9% FLUSH 10 ML IV (20:50)
--- NOTE | 2021-06-11 22:23 | PC.NURSE ---
Patient is alert and oriented. Breath sounds CTA with RA sat of 99%. HRR. BP elevated at 142/63; is on antihypertensives. Denies nausea. BT present and is passing flatus. Voiding without dysuria, frequency or urgency. Is able to move herself in bed. Up to bathroom with walker and 1 assist as is TTWB only on right leg. Wearing brace to right leg. LAVERNE dressing is intact and functioning. No tingling/numbness but does have 4/10 pain controlled with Tylenol and occasional Dilaudid. Is able to minimally lift right leg off bed. Calf SCD applied to left leg. Fall risk score is moderate and patient calls for staff assistance appropriately. Spouse rooming in.
[2021-06-12] MEDS: VANCOMYCIN 1,250 MG/250 ML PIGGYBACK 250 MG IV ×2 (03:36→19:34)
[2021-06-12] MEDS: SODIUM CHLORIDE 0.9% FLUSH 10 ML IV ×4 (03:37→20:51)
[2021-06-12 07:00] VITALS: BP 144/60; PULSE 70; RESP 16; TEMP 36.2; O2SAT 98
--- NOTE | 2021-06-12 08:03 | P.DS_ITS ---
History of Present Illness History of Present Illness Date Patient Seen: 06/12/21 Time Patient Seen: 08:03 Chief complaint: RT TKA Rev Narrative: Operative Date/Time/Diagnoses Date of procedure: 06/08/21 Time of procedure: 11:57 Pre-op diagnosis: Septic right total knee arthroplasty Post-op diagnosis: same Procedure & Clinicians Procedure: Irrigation and debridement with implant removal right knee. Placement of temporary total knee arthroplasty with antibiotic cement. Same procedure as scheduled: Yes Indications: The patient presents today for irrigation debridement and removal of an infected/loose right total knee arthroplasty.? The plan is to put in a temporary prosthesis with antibiotic cement.? She will then be treated for at least 6 weeks with IV antibiotics until the infection is cleared.? A second-stage revi janusz knee arthroplasty will then be performed.? The nature of the procedure including the risks and benefits, alternatives, postoperative course and expected outcome were discussed and all questions answered.? Consent was obtained.? Operative site confirmed and marked. Surgeon: Harlan Yoo Paint Department Supervisor: Aleyda Brown Anesthesia Type: General and Spinal Operative Notes Findings: The femoral and tibial components were not obviously loose.? There was not gross purulence within the knee or under the implants.? There was evidence of clear loosening and infection of the patellar component.? This corresponded to the anterior draining sinus right over the patella.? I could not find exactly where this tracked back to the patella.? All components were removed without sig nificant bone loss.? All cement fragments were removed the knee was irrigated with 6 L of normal saline.? A temporary prosthesis was placed with antibiotic cement. Closure Type: primary Specimen(s): other (Cultures and the prior implants were sent.) Prosthetic devices, grafts, tissues, transplants, or devices: Lesion 6 femur and 15 mm thick 3/4 polyethylene tray. Applied: implant(s) Estimated Blood Loss (mL): 100 Blood products transfused: none Tourniquet time (min): 130 Discharge Providers Provider Date of admission: 06/08/21 05:59 Discharge Date: 06/13/21 Consults: 06/02/21 09:21 Consult to Anesthesiology Routine Comment: Consulting Provider: Anesthesiologist Reason for consultation: Surgeon requested re: Cardiac 06/08/21 06:49 Consult to Anesthesiology Routine Comment: Consulting Provider: Anesthesiologist Reason for consultation: Regional block for post operative pain control 06/08/21 12:08 Consult to Discharge Planning Routine Comment: Consult to Physical Therapy Evaluate & Treat Comment: see addendum to note 06/10/21 Physician Instructions: postop TKA protocol Consult to Respiratory Therapy Evaluate & Treat Comment: Physician Instructions: Evaluate and treat Discharge provider: Rachel Busby PA-C Summary Hospital Course Discharge Diagnosis: 1) Loose/infected total knee arthroplasty, unknown organism 2) s/p Irrigation and debridement with implant removal right knee. Placement of temporary total knee arthroplasty with antibiotic cement. 3) Acute anemia d/t expected surgical blood loss 4) Morbid obesity Hospital Course: Ms Murillo's hospital course was unremarkable. On POD# 4, she was feeling well and wanted to go home. She was weight-bearing as tolerated to 25% on the right. She was eating and voiding without difficulty or assistance. Her was available for help and home and her pain was well-controlled with oral medication. Final anaerobic cultures were not back yet, but were still preliminarily no growth; plan is to continue vancomycin IV x 6 weeks for broad- spectrum coverage since no organism identified. Exam Vital Signs (past 8 hours): Oxygen Delivery Method Room Air Oxygen Flow Rate 0 Narrative Exam Narrative: 5/5 strength in hip flexors, hamstrings, quadriceps, DF, PF, EHL bilaterally. Sensation to light touch intact throughout BLE. Calves soft, compressible, nontender and without palpable cords or masses. Hinged knee brace in place. Const General: cooperative and comfortable Objective Labs Result Diagrams: 06/09/21 06:07 06/11/21 05:25 Labs: Laboratory Results - last 24 hr 06/11/21 06/11/21 14:30 17:11 Vancomycin Peak 28.8 Vancomycin Trough 7.5 L [facility] Medical History Allergic rhinitis Atrial fibrillation Back pain Bronchitis Cardiac arrest (~2011) CHF (congestive heart failure) Concussion (~2015) Diverticulitis Hearing impaired HTN (hypertension) ICD (implantable cardioverter-defibrillator) in place (~2011) LBBB (left bundle branch block) Nonischemic cardiomyopathy Osteoarthritis PVT (paroxysmal ventricular tachycardia) Seasonal allergies Sensitive skin Whiplash Surgical History H/O cardiac radiofrequency ablation (~11/2014) History of arthroplasty of left knee (10/22/18) History of arthroplasty of right knee (02/04/19) History of carpal tunnel surgery of right wrist History of ear surgery Hx of abdominoplasty Hx of bilateral cataract extraction (02/2021) Hx of dilation and curettage Hx of elbow surgery Hx of removal of cyst S/P epidural steroid injection Social History household members: spouse, family and children Smoking Status: Former smoker alcohol intake: current Discharge Assessment & Plan Assessment and Plan Assessment: 1) Loose/infected total knee arthroplasty, unknown organism 2) s/p Irrigation and debridement with implant removal right knee. Placement of temporary total knee arthroplasty with antibiotic cement. 3) Acute anemia d/t expected surgical blood loss 4) Morbid obesity Plan of Treatment: 1) Home with [facility] for BID vancomycin IV; start with 1250 mg BID. Recheck peak and trough on 06/14/2021 and adjust as needed. 2) Continue hinged knee brace at most times; may have off to shower. Weight bearing as tolerated on right to 25%. 3) Pt on Eliquis for a fib; this should be sufficient for postoperative DVT prophylaxis. 4) Hydromorphone for pain d/t oxycodone allergy. Discharge Plan Discharge Plan Patient Disposition: Home Health Service Transfer to: [facility] Discharge orders & Medications Prescriptions: New docusate sodium 100 mg Capsule 100 mg PO BID PRN (Reason: constipation) Qty: 60 2RF hydromorphone 2 mg Tablet 2 mg PO Q4-6H PRN (Reason: Pain, Severe (7-10)) Qty: 42 0RF vancomycin-water inject (PEG) 1.25 gram/250 mL Piggyback 1,250 mg IV Q12H Qty: 3500 0RF Continued apixaban 5 mg Tablet 5 mg PO BID 0RF carvedilol 25 mg Tablet 37.5 mg PO BID 0RF candesartan 4 mg Tablet 4 mg PO BID 0RF acetaminophen [Tylenol Extra Strength] 500 mg Tablet 1,000 mg PO Q6H PRN (Reason: Pain) 0RF Zyrtec 10 mg Capsule 10 mg PO BEDTIME 0RF Follow up/Referrals: Harlan Yoo MD [Physician] - As previously scheduled (Follow up with Aleyda Brown PA-C, on 06/20/2021 @ 1:20 pm at [facility] office in [place].) Diet/Activity/Treatments Diet: Diet as Tolerated Activity: Up to 25% weight bearing on right leg. Hinged knee brace on at most times when OOB; may have off to shower. Cold/Heat Therapy: Ice to knee as needed for pain. Skin/Wound/Dressing Care Report to your healthcare provider any signs of infection, such as:: chills, fever, night sweats, increased pain, unusual drainage and unusual redness Dressing: May shower with LAVERNE dressing on. Call office if the inside of the dressing becomes saturated. Once the battery dies, you can disconnect it but leave the dressing on until you see Dr Yoo. Visit Report/Discharge Packet Instructions: DI for Knee Replacement, DI for Prescription Opioid Use, Hydromorphone Stand Alone Forms: Surgery Discharge Quality VTE Deep Vein Thrombosis/Pulmonary Embolism Present on Admission: No
[2021-06-12 08:25] VITALS: BP 144/60; PULSE 70
[2021-06-12] MEDS: LOSARTAN 25 MG TABLET PO ×2 (08:25→20:51)
[2021-06-12] MEDS: ASPIRIN EC 81 MG TABLET PO ×2 (08:26→20:51)
[2021-06-12] MEDS: DOCUSATE 100 MG CAPSULE PO ×2 (08:26→20:51)
[2021-06-12] MEDS: ACETAMINOPHEN 325 MG TABLET 650 MG PO ×3 (08:26→20:50)
[2021-06-12 08:27] VITALS: BP 144/60; PULSE 70
[2021-06-12] MEDS: carvediloL 12.5 MG TABLET 37.5 MG PO ×2 (08:27→20:51)
[2021-06-12] MEDS: APIXABAN 5 MG TABLET PO ×2 (08:28→20:50)
--- NOTE | 2021-06-12 09:58 | PT.IPTN ---
Current Diagnoses Broken internal right knee prosthesis, sequela (06/08/21) Presence of unspecified artificial knee joint (06/08/21) Surgery Performed Operation Date: 06/08/21 07:45 Actual Procedures p I&D, removal of TKA & placement of temporary TKA(Right) - Harlan Yoo MD Physical Therapy Treatment Note M2 PT-IP Current Condition Start: 06/09/21 13:06 Freq: NEEDED Status: Active Protocol: Document 06/09/21 09:30 AB (Rec: 06/09/21 13:23 AB [id number]) Physical Therapy Current Condition Current Condition Evaluation Date 06/09/21 Treatment Diagnosis R TKA sepsis s/p I&D and antibiotic space; difficulty in walking Onset Date 06/08/21 M3 PT-IP Subjective Start: 06/09/21 13:06 Freq: NEEDED Status: Active Protocol: Document 06/12/21 09:58 AW (Rec: 06/12/21 10:16 AW [id number]) Subjective Physical Therapy Visit Type Type Treatment Note Visit Start Time 09:43 Visit Stop Time 09:58 Total Visit Minutes 15 Notes Pt's spouse in room and attentive throughout treatment . Number of MANAGER OF DRILLING Visits 0 Physical Therapy Visit Comments Patient Comments Pt is up in the chair and feeling very ready to go home. Patient Goals Return home with spouse support. Therapy Pain Assessment Pain When Pain Assessed At Rest Pain Present Pain Present Pain Reported Location Right Knee Intensity 3 Scale Used Numeric (0 - 10) M4 PT-IP Mobility and Gait Start: 06/09/21 13:06 Freq: NEEDED Status: Active Protocol: Document 06/12/21 09:58 AW (Rec: 06/12/21 10:16 AW [id number]) PT-Transfer Assessment Sit to and From Stand Sit to and from Stand Standby Assistance,Use of Upper Extremities Equipment Transfer Assistive Device Gait Belt,Front Wheeled Walker Orthotic/Prosthetic Devices or Brace: Yes Transfers Transfer Destination Chair Transfer Technique ambulated Transfer Ability Level of Assist Standby Assistance,Use of Upper Extremities Comments Mobility Comments Pt sitting up on chair as PT arrived. Pt's spouse was able to adjust the brace with min cues. Pt stood and ambulated with FWW SBA. She was able to maintain <25% PWB RLE. She sat on the chair and completed another 5 reps sit to grain cleaner and transfer operator 35 seconds SBA. Pt was left in the chair with call light and tray table in reach. Gait Assessment Gait Gait Assistance Required: Contact Guard Assist Distance (Feet) 40 Able to Maintain Weight Bearing Status Yes During Gait Assistive Devices Assistive Device Gait Belt,Front Wheeled Walker Orthotic/Prosthetic Devices or Brace: Yes Gait Deviations General Gait Pattern Decreased Stride Length, Decreased Feet Clearance Factors Limiting Gait Function Factors Limiting Gait Function Decreased Activity Tolerance, Decreased Strength,Difficulty Following Directions,Limited Range of Motion,Pain Functional Assessments Functional Tests 5 Times Sit to Stand 35 seconds with need for UE assist from room chair M5 PT-IP Objective Assessments Start: 06/09/21 13:06 Freq: NEEDED Status: Active Protocol: Document 06/09/21 09:30 AB (Rec: 06/09/21 13:23 AB [id number]) Orientation Orientation/Cognition Level of Alertness Alert Orientation Name,Place,Situation Language Function Ability No Deficits Noted Safety Awareness Decreased Safety Awareness Memory Description Short Term Impaired Muscle Tone Muscle Tone WNL Yes M6 PT-IP Treatment Start: 06/09/21 13:06 Freq: NEEDED Status: Active Protocol: Document 06/12/21 09:58 AW (Rec: 06/12/21 10:16 AW [id number]) Physical Therapy Treatment Exercises Exercises Ankle Pumps,Gluteal Sets,Quad Sets,Heel Slides Education Education Provided Weight Bearing Status,Safety Brace Education Donning,[place],Caregiver M7 PT-IP Assessment and Plan Start: 06/09/21 13:06 Freq: NEEDED Status: Active Protocol: Document 06/12/21 09:58 AW (Rec: 06/12/21 10:16 AW [id number]) PT Summary Assessment and Plan Potential Rehabilitation Potential Good Summary Impairments Pain,ROM,Strength,Balance, Coordination,Sensation,Tone, Cognition,Bed Mobility, Transfers,Gait,Activity Tolerance Progress Towards Goals Progressing Toward Goals Assessment Summary Pt needed no more than SBA for all mobility with FWW today. Her spouse is able to assist with brace management and to provide appropriate mobility assist. Pt is appropriate for discharge home with assist and home health PT once medically stable. Goals Bed Mobility Goal Independent Transfer Goal Standby Assistance,Front Wheeled Walker Gait Goal Standby Assistance,Front Wheel Walker Gait Distance 50 Days to Meet Goals 10 Frequency of Treatment Frequency Of Treatment Twice a Day Treatment Plan Physical Therapy Treatment Plan Bed Mobility Training,Transfer Training,Gait Training, Therapeutic Exercise,Balance Retraining,Post Op Education, Discharge Planning,Hot or Cold Pack,Neuromuscular Re-ed, Coordination Retraining,Manual Therapy Precautions Brace R knee hinged brace locked in 0 degrees (can be unlock for gently ROM per ASHU Jerez) Weight Bearing Status Weight Bearing Status Touch Down Weight Bearing Allowed Weight Bearing Amount (enter % per Dr. Yoo op note: or #) (%) toe-touch weight-bearing initially on the right knee with a hinged knee brace. May increase up to 25% weight- bearing if comfortable. Recommendations To Nursing Amount of Assist Needed Standby Assistance,1 Person Assist Discharge Recommendations PT Discharge Recommendations Home with Assistance,Home Health Other Discharge Recommendations BSC for home Transportation Needs at Discharge Private Vehicle
--- NOTE | 2021-06-12 12:56 | CM.DPC ---
Addendum entered by KERA Tejada 06/12/21 15:59: ADD: Call from [facility] stating unfortunately they now cannot meet with pt until 1530 tomorrow 06/13/21 and rather than switch to Dapto for one dose etc.. decision made to cancel d/c for tonight and provide IV-Abx at 1600 and then morning dose and then pt to d/c home via spouse POV and [facility] to follow in the home at 1530 for afternoon dose. SW faxed d/c summary and PICC insertion note to [facility] to review. Occupational Therapy Aide updating family and Ortho PA. BF Original Note: DCP Discharge Home with [facility] Per Ortho PA, pt medically stable to d/c home today pending PICC placement and home infusion set up and to have additional peak and trough drawn tomorrow. PICC was ordered but per atomic welder, no DI RN in house today to place PICC and contracted company struggling to get DI RN here in a timely manner and likely not available until late afternoon/early evening. DANITZA spoke to Naresh at [facility] and confirmed they have referral but faxed additional information to review including d/c summary. Per Naresh, they ran insurance and pt has good coverage and has a $250 deductible not yet met, $2000 max out pocket expense not met and therefore currently would be $120 a week for home infusion. Naresh called pt and spouse in room and updated on this information and they are agreeable to the cost and hopeful to d/c home today but pending timing of PICC placement, pt likely will need her next Q12 dose here at the hospital around [id number] prior to d/c. [facility] is following to determine meeting pt/spouse this evening vs tomorrow morning. Plan: SW to follow closely for PICC RN to arrive for insertion and to fax [facility] pt's PICC insertion note and MD orders if information on d/c summary not enough. Ortho team to follow for IV-Abx. KERA Tejada
--- NOTE | 2021-06-12 14:12 | DI.RAD.S_ITS ---
PROCEDURE: XR CHEST FOR PICC 1V INDICATIONS: to verify PICC placement COMPARISON: None. FINDINGS: PICC was placed by the intravenous therapy team from the right side. Fluoroscopic spot film demonstrates the tip of PICC projecting to the area of mid/distal SVC. IMPRESSION: Tip of PICC projects to the area of mid/distal SVC. Dictated by: Marion Perkins M.D. on 06/12/2021 at 15:27 Approved by: Marion Perkins M.D. on 06/12/2021 at 15:27
[2021-06-12 16:00] VITALS: BP 143/72; PULSE 100; RESP 16; TEMP 36.6; O2SAT 100
--- NOTE | 2021-06-12 16:53 | PT.IPTN ---
Current Diagnoses Broken internal right knee prosthesis, sequela (06/08/21) Presence of unspecified artificial knee joint (06/08/21) Surgery Performed Operation Date: 06/08/21 07:45 Actual Procedures p I&D, removal of TKA & placement of temporary TKA(Right) - Harlan Yoo MD Physical Therapy Treatment Note M2 PT-IP Current Condition Start: 06/09/21 13:06 Freq: NEEDED Status: Active Protocol: Document 06/12/21 16:23 SP (Rec: 06/12/21 17:11 SP [id number]) Physical Therapy Current Condition Current Condition Evaluation Date 06/09/21 Treatment Diagnosis R TKA sepsis s/p I&D and antibiotic space; difficulty in walking Onset Date 06/08/21 M3 PT-IP Subjective Start: 06/09/21 13:06 Freq: NEEDED Status: Active Protocol: Document 06/12/21 16:23 SP (Rec: 06/12/21 17:11 SP [id number]) Subjective Physical Therapy Visit Type Type Treatment Note Visit Start Time 16:23 Visit Stop Time 16:53 Total Visit Minutes 30 Notes Spouse in room attentive to tx . Number of PODIATRY DOCTOR Visits 1 Physical Therapy Visit Comments Patient Comments Pt is up in chair waiting to go home. Pt stated coordination with IV meds and getting to outpt company for IV training at home didn't work out so staying another night. Patient Goals Return home with spouse support. Therapy Pain Assessment Pain When Pain Assessed During Mobility Pain Present Pain Present Pain Reported Location Right Knee Intensity 3 Scale Used Numeric (0 - 10) Description Aching,Tender,With Movement Pain Behaviors Facial Grimacing Pain Management Techniques Distraction,Modification of Treatment,Re-positioning, Timing of Activity with Medications M4 PT-IP Mobility and Gait Start: 06/09/21 13:06 Freq: NEEDED Status: Active Protocol: Document 06/12/21 16:23 SP (Rec: 06/12/21 17:11 SP [id number]) PT-Transfer Assessment Sit to and From Stand Sit to and from Stand Standby Assistance,Use of Upper Extremities Equipment Transfer Assistive Device Gait Belt,Front Wheeled Walker Orthotic/Prosthetic Devices or Brace: Yes Transfers Transfer Destination Chair,Toilet Transfer Technique ambulated using FWW Transfer Ability Level of Assist Standby Assistance,Use of Upper Extremities Comments Mobility Comments Pt up in chair. Scoot and Sit> stand, gait around room SBA using FWW, good TTWB up to 25% WB allowed on RLE across room and back to bathroom 35 ft, pivot in bathroom and self descent toilet using grab bar sBA. Self pericare in sitting, sit>stand SBA and gait to sink w/ fWW, cued keep walker positioned front for assist stability if needed and wt shift over LLE to maintain 25% WB RLE. Pt returned to chair sBA. PODIATRY DOCTOR discussed mobility every hour if can at home and elevate RLE w/ APs for circulation. Pt is ok to return home with to assist her when medically cleared, recommending HHPT. Gait Assessment Gait Gait Assistance Required: Standby Assistance Distance (Feet) 46 Able to Maintain Weight Bearing Status Yes During Gait Assistive Devices Assistive Device Gait Belt,Front Wheeled Walker Orthotic/Prosthetic Devices or Brace: Yes Gait Deviations General Gait Pattern Decreased Stride Length, Decreased Feet Clearance,Step- to Gait Factors Limiting Gait Function Factors Limiting Gait Function Decreased Activity Tolerance, Decreased Strength,Limited Range of Motion,Pain Comments Gait Comments Pt able to maintain TTWB <25% WB RLE w/ FWW sBA. Stair Climbing Assessment Comments Stair Climbing Comments Does not have to do her stairs , son put in ramp and has w/c if needed. PT-Balance Assessment Sitting Balance and Reactions Static Sitting Balance Ability Normal Dynamic Sitting Balance Ability Good Standing Balance and Reactions Static Standing Balance Ability Good Dynamic Standing Balance Ability Good Device Used FWW M5 PT-IP Objective Assessments Start: 06/09/21 13:06 Freq: NEEDED Status: Active Protocol: Document 06/09/21 09:30 AB (Rec: 06/09/21 13:23 AB [id number]) Orientation Orientation/Cognition Level of Alertness Alert Orientation Name,Place,Situation Language Function Ability No Deficits Noted Safety Awareness Decreased Safety Awareness Memory Description Short Term Impaired Muscle Tone Muscle Tone WNL Yes M6 PT-IP Treatment Start: 06/09/21 13:06 Freq: NEEDED Status: Active Protocol: Document 06/12/21 16:23 SP (Rec: 06/12/21 17:11 SP [id number]) Physical Therapy Treatment Education Education Provided Weight Bearing Status,Safety M7 PT-IP Assessment and Plan Start: 06/09/21 13:06 Freq: NEEDED Status: Active Protocol: Document 06/12/21 16:23 SP (Rec: 06/12/21 17:11 SP [id number]) PT Summary Assessment and Plan Potential Rehabilitation Potential Good Status of Condition at Evaluation Evolving Summary Impairments Pain,ROM,Strength,Balance, Coordination,Sensation,Tone, Cognition,Bed Mobility, Transfers,Gait,Activity Tolerance Progress Towards Goals Progressing Toward Goals,Slow Progress due to Pain,Slow Progress due to Activity Tolerance Assessment Summary Pt needed no more than SBA for all mobility with FWW today. Her spouse is able to assist with brace management and to provide appropriate mobility assist. Pt is appropriate for discharge home with assist and home health PT once medically stable. Goals Bed Mobility Goal Independent Transfer Goal Standby Assistance,Front Wheeled Walker Gait Goal Standby Assistance,Front Wheel Walker Gait Distance 50 Days to Meet Goals 10 Frequency of Treatment Frequency Of Treatment Twice a Day Treatment Plan Physical Therapy Treatment Plan Bed Mobility Training,Transfer Training,Gait Training, Therapeutic Exercise,Balance Retraining,Post Op Education, Discharge Planning,Hot or Cold Pack,Neuromuscular Re-ed, Coordination Retraining,Manual Therapy Other Recommendations and Next Treatment LE ex, gait w/ FWW Focus Precautions Brace R knee hinged brace locked in 0 degrees (can be unlock for gently ROM per ASHU Jerez) Weight Bearing Status Weight Bearing Status Touch Down Weight Bearing Allowed Weight Bearing Amount (enter % per Dr. Yoo op note: or #) (%) toe-touch weight-bearing initially on the right knee with a hinged knee brace. May increase up to 25% weight- bearing if comfortable. Recommendations To Nursing Amount of Assist Needed Standby Assistance Discharge Recommendations PT Discharge Recommendations Home with Assistance,Home Health Other Discharge Recommendations [facility] for home Transportation Needs at Discharge Private Vehicle
[2021-06-12 19:10] VITALS: BP 141/72; PULSE 78; RESP 18; TEMP 36.1; O2SAT 98
[2021-06-12] MEDS: SODIUM CHLORIDE 0.9% 250 ML 21 ML IV (19:33)
[2021-06-12 20:51] VITALS: BP 141/72; PULSE 78
[2021-06-12] MEDS: LORATADINE 10 MG TABLET PO (20:51)
--- NOTE | 2021-06-12 22:44 | PC.NURSE ---
Patient is alert and oriented. Breath sounds CTA with RA sat of 98%. HRR. BP remains elevated but stable at 141/72. Denies nausea. BT present and had BM earlier today. Voiding without dysuria, frequency or urgency. Is able to move herself in bed. Up to bathroom with walker; does need assistance to get right leg in/out of bed but otherwise walks with just SBA and maintaining TTWB on right. Wearing hinged leg brace on right leg. LAVERNE dressing is intact and functioning although intermittently displaying leak signal. No tingling/numbness but does have difficulty lifting right leg. Wearing left calf SCD for the night. States pain is 3/10 and tolerable; taking scheduled Tylenol and uses ice pack prn. Fall risk score is moderate but calls appropriately for assistance so alarm is not being used. Spouse rooming in.
[2021-06-13 07:00] VITALS: BP 133/76; PULSE 76; RESP 16; TEMP 36.1; O2SAT 98
[2021-06-13] MEDS: ACETAMINOPHEN 325 MG TABLET 650 MG PO (08:17)
[2021-06-13] MEDS: APIXABAN 5 MG TABLET PO (08:17)
[2021-06-13] MEDS: DOCUSATE 100 MG CAPSULE PO (08:17)
[2021-06-13] MEDS: VANCOMYCIN 1,250 MG/250 ML PIGGYBACK 250 MG IV (08:17)
[2021-06-13] MEDS: ASPIRIN EC 81 MG TABLET PO (08:17)
[2021-06-13 08:19] VITALS: BP 147/65; PULSE 79
[2021-06-13] MEDS: carvediloL 12.5 MG TABLET 37.5 MG PO (08:19)
[2021-06-13 08:20] VITALS: BP 147/65; PULSE 70
[2021-06-13] MEDS: LOSARTAN 25 MG TABLET PO (08:20)
--- NOTE | 2021-06-13 10:55 | PT.IPTN ---
Current Diagnoses Broken internal right knee prosthesis, sequela (06/08/21) Presence of unspecified artificial knee joint (06/08/21) Surgery Performed Operation Date: 06/08/21 07:45 Actual Procedures p I&D, removal of TKA & placement of temporary TKA(Right) - Harlan Yoo MD Physical Therapy Treatment Note M2 PT-IP Current Condition Start: 06/09/21 13:06 Freq: NEEDED Status: Discharge Protocol: Document 06/12/21 16:23 SP (Rec: 06/12/21 17:11 SP [id number]) Physical Therapy Current Condition Current Condition Evaluation Date 06/09/21 Treatment Diagnosis R TKA sepsis s/p I&D and antibiotic space; difficulty in walking Onset Date 06/08/21 M3 PT-IP Subjective Start: 06/09/21 13:06 Freq: NEEDED Status: Discharge Protocol: Document 06/13/21 10:55 AB (Rec: 06/13/21 12:35 AB [id number]) Subjective Physical Therapy Visit Type Type Treatment Note Visit Start Time 10:55 Visit Stop Time 11:22 Total Visit Minutes 27 Number of WEB DEVELOPMENT CONSULTANT Visits 0 Physical Therapy Visit Comments Patient Comments pt stated that she is going home but has questions and needs adjustment to her knee brace M4 PT-IP Mobility and Gait Start: 06/09/21 13:06 Freq: NEEDED Status: Discharge Protocol: Document 06/13/21 10:55 AB (Rec: 06/13/21 12:35 AB [id number]) PT-Bed Mobility Assessment Sit to Supine Sit to Supine Moderate Assistance PT-Transfer Assessment Sit to and From Stand Sit to and from Stand Standby Assistance Equipment Transfer Assistive Device Gait Belt,Front Wheeled Walker Transfers Transfer Destination Bed Comments Mobility Comments pt sitting on chair and knee brace needs adjustment. spouse also has questions regarding the brace. pt completed transfer from chair to bed with spouse assisting using fWW. instructed pt to scoot towards HOB. completed sit to stand from EOB SBA and took side steps towards HOB SBA using FWW. completed sit to supine with spouse assisting with RLE elevation to bed. Caregiver training conducted. spouse able to doff brace. provided pt with sleeve stocking for RLE. adjusted brace for pt and reviewed with spouse regarding brace positioning and adjustement. spouse was able to mariela brace back on pt. pt and spouse without any other concerns. left pt in bed with call light and table placed within reach . M5 PT-IP Objective Assessments Start: 06/09/21 13:06 Freq: NEEDED Status: Discharge Protocol: Document 06/09/21 09:30 AB (Rec: 06/09/21 13:23 AB [id number]) Orientation Orientation/Cognition Level of Alertness Alert Orientation Name,Place,Situation Language Function Ability No Deficits Noted Safety Awareness Decreased Safety Awareness Memory Description Short Term Impaired Muscle Tone Muscle Tone WNL Yes M6 PT-IP Treatment Start: 06/09/21 13:06 Freq: NEEDED Status: Discharge Protocol: Document 06/13/21 10:55 AB (Rec: 06/13/21 12:35 AB [id number]) Physical Therapy Treatment Education Education Provided Safety Brace Education Jaclyn Cárdenas,Caregiver M7 PT-IP Assessment and Plan Start: 06/09/21 13:06 Freq: NEEDED Status: Discharge Protocol: Document 06/13/21 10:55 AB (Rec: 06/13/21 12:35 AB [id number]) PT Summary Assessment and Plan Potential Rehabilitation Potential Good Summary Impairments Pain,ROM,Strength,Balance, Coordination,Sensation,Tone, Cognition,Bed Mobility, Transfers,Gait,Activity Tolerance Progress Towards Goals Progressing Toward Goals Assessment Summary pt progressing well with mobility and spouse is able to assist pt. caregiver training conducted and spouse able to safely provide pt with assistance. pt plans to go home. Goals Bed Mobility Goal Independent Transfer Goal Standby Assistance,Front Wheeled Walker Gait Goal Standby Assistance,Front Wheel Walker Gait Distance 50 Days to Meet Goals 10 Frequency of Treatment Frequency Of Treatment Twice a Day Treatment Plan Physical Therapy Treatment Plan Bed Mobility Training,Transfer Training,Gait Training, Therapeutic Exercise,Balance Retraining,Post Op Education, Discharge Planning,Hot or Cold Pack,Neuromuscular Re-ed, Coordination Retraining,Manual Therapy Precautions Brace R knee hinged brace locked in 0 degrees (can be unlock for gently ROM per ASHU Jerez) Weight Bearing Status Weight Bearing Status Touch Down Weight Bearing Allowed Weight Bearing Amount (enter % per Dr. Yoo op note: or #) (%) toe-touch weight-bearing initially on the right knee with a hinged knee brace. May increase up to 25% weight- bearing if comfortable. Recommendations To Nursing Amount of Assist Needed Standby Assistance Discharge Recommendations PT Discharge Recommendations Home with Assistance,Home Health Transportation Needs at Discharge Private Vehicle
--- NOTE | 2021-06-13 11:34 | CM.DPNOTE ---
social worker aide informed patient is discharging home today. social worker aide contacted Naresh at [employer] who confirmed they are set up to meet with patient in-home at 1530 today and do not require any further information. No other discharge planning needs identified at this time. Roque VIVEROS
--- NOTE | 2021-06-13 11:45 | PC.NURSE ---
Pt discharged at 1145, escorted off floor in wheelchair, accompanied by spouse and nursing staff. PICC line in place to RUE. Discharge teaching provided including follow up appointments and new medications. Questions and concerns answered. Pt left floor with all belongings.
== END 2021-06-13 11:49 | disposition home or self-care (01) | DRG 467 ==
PROVIDERS: Admitting Provider Orthopaedic Surgery; Referring Provider Orthopaedic Surgery; Visit Provider Orthopaedic Surgery
PROC: 0SPC0JZ Removal of Synthetic Substitute from Right Knee Joint, Open Approach (ICD-10-PCS; principal; 2021-06-08 07:45)
DX: T84.53XA Infection and inflammatory reaction due to internal right knee prosthesis, initial encounter (principal); I42.8 Other cardiomyopathies; Z68.43 Body mass index [BMI] 50.0-59.9, adult; T84.032A Mechanical loosening of internal right knee prosthetic joint, initial encounter; I48.91 Unspecified atrial fibrillation; I11.0 Hypertensive heart disease with heart failure; I50.9 Heart failure, unspecified; E66.01 Morbid (severe) obesity due to excess calories; J30.2 Other seasonal allergic rhinitis; Z87.891 Personal history of nicotine dependence; Z20.822 Contact with and (suspected) exposure to COVID-19; Z79.01 Long term (current) use of anticoagulants; Z95.810 Presence of automatic (implantable) cardiac defibrillator
CPT/HCPCS: 36415; 36569; 64450; 73560; 80202; 82565; 85014; 85018; 87070; 87075; 87205; 87635; 94762; 97110; 97116; 97162; 97530; C1776; C9803; C1713; J0690; J1100; J2250; J2274; J2405; J2704

== ENCOUNTER → 2021-09-22 12:54 | Outpatient (CLI) | payer OTHER, SELFPAY ==
[2021-06-08 13:58] VITALS: BMI 53.6
[2021-09-22 13:18] LABS: COVID19 -Nasal RAPID Negative (Negative)
== END ==
PROVIDERS: PCP Family Medicine; Referring Provider Orthopaedic Surgery; Visit Provider Orthopaedic Surgery
DX: Z20.822 Contact with and (suspected) exposure to COVID-19 (principal); Z11.59 Encounter for screening for other viral diseases
CPT/HCPCS: 87635; C9803

== ENCOUNTER 2021-09-25 09:38 | Inpatient (IN) | payer OTHER, SELFPAY ==
[2021-06-08 13:58] VITALS: BMI 53.6
[2021-09-25] VITALS (13 sets, daily range): BP systolic 94–145; BP diastolic 52–69; PULSE 16–71; RESP 12–70; TEMP 35.4–36.5; O2SAT 92–99; BMI 50.6
[2021-09-25] MEDS: VANCOMYCIN 1,000 MG/200 ML PIGGYBACK 200 MG IV ×2 (10:38→13:10)
[2021-09-25] MEDS: ACETAMINOPHEN 325 MG TABLET 975 MG PO (10:42)
[2021-09-25] MEDS: LACTATED RINGERS 1,000 ML 42 ML IV ×2 (10:44→13:24)
--- NOTE | 2021-09-25 10:58 | PM.PREOP ---
Pre-operative Note COVID-19 COVID-19 status: Negative Interval Note History & Physical reviewed/Exam performed by Physician: Yes Changes to H&P: No
--- NOTE | 2021-09-25 11:17 | P.OP_ITS ---
Operative Date/Time/Diagnoses Date of procedure: 09/25/21 Time of procedure: 11:50 Pre-op diagnosis: History of prior right knee periprosthetic infection with history of previous antibiotic spacer placement Post-op diagnosis: same Procedure & Clinicians Procedure: Right total knee revision with removal of antibiotic spacer Same procedure as scheduled: Yes Indications: The patient has had a prior right total knee arthroplasty. Unfortunately it was complicated by a periprosthetic infection. She has previously had removal of her prosthesis and placement of an antibiotic spacer. All indications suggests that her infection has been adequately treated. And she is now brought to the operating room for placement of a right total knee arthroplasty revision Total knee replacement. The risks, benefits and alternatives to surgery were discussed with the patient prior to proceeding. Risks discussed included, but were not limited to, failure to relieve pain, stiffness, infection, nerve damage, deep venous thrombosis, pulmonary embolism, stroke, coma, heart attack, permanent paralysis and , as well as the potential need for eventual revision of the prosthetic. Specific concerns regarding reinfection and additional risks for secondary infection were discussed in detail. Surgeon: Ila Loco Back Hand: Connor Jerez Anesthesia Type: General and Spinal Operative Notes Findings: No obvious acute infection, acceptable stability, moderate bone loss from both the femur and the tibia Closure Type: primary Specimen(s): none sent Prosthetic devices, grafts, tissues, transplants, or devices: Loco and nephew size 5 femur, 14 x 120 stem and 14 x 160 stem, size 4 tibia, 10 mm distal femoral augment, 4 mm femoral legion offset petroleum products sales representative, 10 mm tibial augment, size 9 poly legion high flexion posterior stabilized 32 x 7-1/2 mm patella Applied: drain(s) Estimated Blood Loss (mL): 250 Blood products transfused: none Tourniquet time (min): 135 Procedure in detail: The patient was seen in the pre-operative area, where the patient identified the right knee as the operative site and this was marked with my initials. The patient received pre-operative antibiotics, and was taken to the operating room and placed on the operative table in the supine position. After satisfactory anesthesia, a multimedia programmer out was performed. The right leg was encircled with a tourniquet about the proximal thigh, and the leg was prepared from the toes to the tourniquet with ChloroPrep in the usual fashion and draped through sterile drapes. The leg was elevated and exsanguinated with Eschmark bandage and the tourniquet inflated to [250] mmHg pressure. The knee was approached through an approximately 24 cm incision centered over the patella and carried into the knee through a medial parapatellar arthrotomy. Synovial tissue was sent for culture and sensitivity. A cover was then placed on the patella. I did an extensive synovectomy. The distal femoral component was well visualized. A use an oscillating saw to free the tibial spacer and removed the tibial spacer. A TPS saw and a combination of osteotomes were then used to meticulously free the femur and it was removed with minimal bone loss. The tibia was removed and all the cement was carefully removed from the tibia. The tibia was reamed in the inter medullary canal and prepared. A small finishing cut was performed on tibia, tibia was noted to have adequate coverage. Tibial cut was noted to be fairly deep because of previous bone loss. It was felt that we would probably need an augment. Coverage was not felt to be enhanced with an offset petroleum products sales representative. A size 4 tibia with a 10 mm augment and a 14 mm stem was felt to be adequate. Attention was then directed at the femur. It was carefully reamed. I analyzed the distal femoral cut to see if it would be helpful to do a cleanup cut. There was moderate amount of bone loss especially in the medial compartment. Really did not look like it would help to do a specific distal femoral cleanup cut. We assessed the femur for the decision of a 6 verses a 5 femur. There was some both bone loss both from the anterior aspect of the femur as well as posteriorly. With a 4 mm petroleum products sales representative I was able to postdural I as the femoral component tightening the flexion gap and making the flexion and extension gap balanced. The trial component was pinned to the femur. The notch was prepared. A trial reduction with the 9 poly showed good balance in flexion and extension and good range of motion. There was no evidence of notching. The bone was carefully prepared removing any soft tissues in order to prepare the bone for cementing. The posterior capsule was injected with part of a mixture of 60 ml 0.25% Marcaine mixed with 20 ml Exparel for post operative pain control. The remainder of this mixture was injected into the capsule and subcutaneous tissues during cement curing. The tibial and femoral components were then placed and the knee placed through a range of motion. Range of motion was [0-125], with good stability throughout the range. The patella was carefully prepared. I specifically remove soft tissues did cleanup cut. Patella was about 12 mm. Drill holes were made for 32 mm patella. Multiple cultures were sent throughout the procedure. We sent cultures and PCR. Cultures were obtained from the patella, femur, and tibia. There was no obvious infection. The trials were then removed. The bone was prepared with pulsatile lavage, and dried with a sponge. Cement was applied and the final prosthetics placed. Two batches of cement were used in order to provide adequate cement fill and fixation. The tibial component was meticulously covered with cement. Proximal tibial metaphysis was carefully cemented. Excess cement was removed during and after cement curing. Next the femur and patella were cemented with a separate batch. Patient is place her range of motion in order to make sure that there was adequate tracking with a trial polyethylene. A brief Betadine soak was performed. After confirming there was no extruded cement posteriorly, the final tibial insert was placed. The knee was copiously irrigated and the tourniquet deflated. Hemostasis was obtained with the [Aquamantys system]. A drain was placed and brought out superolaterally. The capsule was closed with interrupted nonabsorbable suture. The subcutaneous layer was closed with barbed sutures, and the skin with a running 3-0 V-Lock suture and skin adelaida. An Aquacel Ag dressing was applied and the patient was taken to recovery having tolerated the procedure well. Complications: none Post-operative Condition: stable Disposition: Acute Care Plan for aftercare: The patient will be maintained on a standard total knee replacement protocol with weight bearing as tolerated. The patient will receive aspirin and sequential compression devices for DVT prophylaxis. The patient will be discharged home when safe for the home environment.
--- NOTE | 2021-09-25 12:00 | DI.RAD.S_ITS ---
PROCEDURE: XR KNEE RT 1TO2V INDICATIONS: post op right knee TECHNIQUE: 2 view(s) of the knee acquired. COMPARISON: [facility], CR, XR KNEE RT 1TO2V, 06/08/2021, 12:49. FINDINGS: Bones: Patient is status post knee joint arthroplasty. Hardware components are in expected positions. Visualized bony structures are intact. Soft tissues: Overlying postoperative changes are noted. IMPRESSION: Expected alignment status post revision of right TKA. Dictated by: Manoj Esteban [facility] Interpreted: Doug Meeks MD on 09/25/2021 at 16:51 Transcribed by: FREDDIE on 09/25/2021 at 16:51 Approved by: Doug Meeks M.D. on 09/25/2021 at 18:00
[2021-09-25] MEDS: CEFAZOLIN 2 GM IN 0.9 % NACL 100 ML IV ×2 (12:10→20:34)
[2021-09-25] MEDS: TRANEXAMIC ACID 1,000 MG VIAL 2000 MG INJ (12:10)
--- NOTE | 2021-09-25 12:39 | SUR.OPER ---
Supine on padded OR bed. Pillow under head, arms secured on padded armboards <90 degree abduction. Safety belt across torso. Non-operative leg secured with tape over blanket over lower leg. Operative leg secured in DeMayo/Daniel/Nathe positioner. Foam padded brace at thigh of operative leg. POSITION APPROVED BY SURGEON AND ANESTHESIA
[2021-09-25] MEDS: BUPIVACAINE LIPOSOME 266 MG/20 ML VIAL INJ (15:37)
[2021-09-25] MEDS: BUPIVACAINE 0.25% (PF) 60 ML, EPINEPHrine 0.3 MG INJ (15:37)
--- NOTE | 2021-09-25 16:19 | SUR.PHASEI ---
Addendum entered by Candie Martinez R.N. 09/25/21 16:35: During handoff LAVERNE dressing was flashing green and orange. Made Dr. Loco aware. No new orders received. Original Note: Pt A&Ox4, spinal at L3, denies any distress, dressing C/D/I, tolerating PO, and ready to transfer to room. Report given to receiving RN using SBAR with time allowed for questions. Pt to be transferred to room 213, all personal belongings with patient including clothing, splint and walker.
[2021-09-25] MEDS: LACTATED RINGERS 1,000 ML 100 ML IV (16:50)
--- NOTE | 2021-09-25 17:54 | PC.NURSE ---
Patient to room 213 after having a revision of her r. knee. She has a juan dressing in place that is suctioning but blinking orange on the little motor. Connor Jerez up to see patient and tried to find leak, but unable. States that it may be acting up secondary to hemovac being clamped. This will be unclamped soon. in room, asking us for a larger chair to sleep in, as he is going to stay the night. This RN looked for a chair for him, but there is nothing available at this time. Most of the chairs are the same size. Patient states that her pain is a 4/10, leg repositioned and better . She denies nausea and is tolerating fluids. She was not hungry, so asked if he could eat her dinner. Told patient to please let us know if she gets hungry. Romario wrap taken off of leg to visualized juan dressing and taped reenforced around dressing. Patient is resting now. She denies having to void now.
[2021-09-25] MEDS: ACETAMINOPHEN 325 MG TABLET 650 MG PO (18:16)
[2021-09-25] MEDS: TRAMADOL 50 MG TABLET PO (18:16)
[2021-09-25] MEDS: carvediloL 12.5 MG TABLET 37.5 MG PO (20:27)
[2021-09-25] MEDS: DOCUSATE 100 MG CAPSULE PO (20:27)
[2021-09-25] MEDS: LOSARTAN 25 MG TABLET PO (20:33)
[2021-09-25] MEDS: LORATADINE 10 MG TABLET PO (20:33)
[2021-09-26 00:20] VITALS: BP 140/62; PULSE 69; RESP 18; TEMP 36.1; O2SAT 99
[2021-09-26] MEDS: diphenhydrAMINE 50 MG/ML VIAL IV (02:34)
[2021-09-26] MEDS: LACTATED RINGERS 1,000 ML 100 ML IV (02:34)
[2021-09-26] MEDS: TRAMADOL 50 MG TABLET PO ×3 (02:42→14:24)
[2021-09-26] MEDS: CEFAZOLIN 2 GM IN 0.9 % NACL 100 ML IV (03:42)
[2021-09-26 04:18] VITALS: BP 117/58; PULSE 71; RESP 18; TEMP 36.1; O2SAT 98
[2021-09-26] MEDS: ACETAMINOPHEN 325 MG TABLET 650 MG PO (06:05)
--- NOTE | 2021-09-26 07:39 | P.PN_ITS ---
Subjective Subjective Date Patient Seen: 09/26/21 Time Patient Seen: 07:39 Interval history: Patient's right knee pain is mild. Denies fever or chills. No nausea or vomiting. Patient has been up to use the bathroom with assistance. Her 's home to assist her. She is otherwise without complaints this morning. Exam Vital Signs (past 8 hours): - 09/26/21 00:20 09/26/21 04:18 Temperature 97.0 F L 97.0 F L Pulse Rate 69 71 Respiratory Rate 18 18 Blood Pressure 140/62 117/58 L Pulse Oximetry 99 98 Oxygen Flow Rate 0 0 Oxygen Delivery Method Room Air Oxygen Flow Rate 0 Narrative Exam Narrative: 66-year-old female resting comfortably in bed in no apparent distress. BMI is 50.7. Matthew dressing is on and functioning. Dressing is clean dry and intact. Motor functions intact bilateral lower extremities. Sensation grossly intact to light touch bilateral lower extremities. Const General: cooperative and comfortable Nutritional Appearance: obese Orientation: alert Resp Effort & Inspection: normal respiratory effort and able to speak in complete sentences [facility] Medical History Allergic rhinitis Atrial fibrillation Back pain Bronchitis Cardiac arrest (~2011) CHF (congestive heart failure) Concussion (~2015) Diverticulitis Hearing impaired HTN (hypertension) ICD (implantable cardioverter-defibrillator) in place (~2011) LBBB (left bundle branch block) Nonischemic cardiomyopathy Osteoarthritis PVT (paroxysmal ventricular tachycardia) Seasonal allergies Sensitive skin Whiplash Surgical History H/O cardiac radiofrequency ablation (~11/2014) History of arthroplasty of left knee (10/22/18) History of arthroplasty of right knee (02/04/19) History of carpal tunnel surgery of right wrist History of ear surgery Hx of abdominoplasty Hx of bilateral cataract extraction (02/2021) Hx of dilation and curettage Hx of elbow surgery Hx of removal of cyst S/P epidural steroid injection Social History household members: spouse, family and children Smoking Status: Former smoker alcohol intake: current Assessment & Plan Post-op Postoperative Procedures: Procedures Operation Date: 09/25/21 11:15 Actual Procedure Side Surgeon p Total Knee Arthroplasty Revision Right Ila Loco MD Postoperative status: doing well Postoperative status narrative: Patient progressing as expected status post right total knee revision with removal of antibiotic spacer Postoperative plan: routine post-op care Postoperative plan narrative: Patient will be maintained on standard total knee replacement protocol with weight-bearing as tolerated Multimodal pain management Aspirin and SCDs for DVT prophylaxis Mobilize with physical therapy Disposition, home today or tomorrow after mobilize with physical therapy is safe for home environment. Quality VTE Deep Vein Thrombosis/Pulmonary Embolism Present on Admission: No
[2021-09-26 07:55] VITALS: BP 121/41; PULSE 70; RESP 16; TEMP 35.4; O2SAT 99
[2021-09-26] MEDS: DOCUSATE 100 MG CAPSULE PO (09:16)
--- NOTE | 2021-09-26 09:25 | PT.IIE ---
Current Diagnoses Acquired absence of right knee (09/25/21) Presence of right artificial knee joint (09/25/21) Surgery Performed Operation Date: 09/25/21 11:15 Actual Procedures p Total Knee Arthroplasty Revision(Right) - Ila Loco MD Surgical History (Last Reviewed 09/26/21 @ 07:40 by Connor Jerez PA-C) H/O cardiac radiofrequency ablation (~11/2014) History of arthroplasty of left knee (10/22/18) History of arthroplasty of right knee (02/04/19) History of carpal tunnel surgery of right wrist History of ear surgery Hx of abdominoplasty Hx of bilateral cataract extraction (02/2021) Hx of dilation and curettage Hx of elbow surgery Hx of removal of cyst S/P epidural steroid injection Medical History (Last Reviewed 09/26/21 @ 07:40 by Connor Jerez PA-C) Allergic rhinitis Atrial fibrillation Back pain Bronchitis Cardiac arrest (~2011) CHF (congestive heart failure) Concussion (~2015) Diverticulitis Hearing impaired HTN (hypertension) ICD (implantable cardioverter-defibrillator) in place (~2011) LBBB (left bundle branch block) Nonischemic cardiomyopathy Osteoarthritis PVT (paroxysmal ventricular tachycardia) Seasonal allergies Sensitive skin Whiplash Physical Therapy Inpatient Evaluation/Re-Eval M1 PT/OT-IP Prior Functional Status Start: 09/26/21 12:20 Freq: NEEDED Status: Active Protocol: Document 09/26/21 09:25 AB (Rec: 09/26/21 12:36 AB [id number]) Medical Review Prior Functional Status Medical History Reviewed Yes Communication able to make needs known Mobility and Gait pt stated that she is modified independent with all mobilities and ambulation using FWW but restricted due to weight bearing restriction. pt has R knee antibiotic spacer last 06/08/21 and has been TTWB since then. Prior Functional Level (Other details) R knee antibiotic spacer 06/08 and now back for R TKA revision Social History Household Members spouse,family,children Living Arrangements House Number of Floors (Floors) Two Floors Number of Stairs To Enter/Railing? pt stays on the main level of the house no steps to enter; has a ramp Home Environment Standard Height Toilet,Tub/ Shower,Ramp Home Equipment Front Wheel Walker,Straight Cane,Tub Transfer Bench,Hand Held Shower,Grab Bars In Shower Additional Social History Comment has her spouse, sons, DIL and grandson at home to assist her M2 PT-IP Current Condition Start: 09/26/21 12:20 Freq: NEEDED Status: Active Protocol: Document 09/26/21 09:25 AB (Rec: 09/26/21 12:36 AB [id number]) Physical Therapy Current Condition Current Condition Evaluation Date 09/26/21 Treatment Diagnosis s/p R TKA revision; difficulty in walking Onset Date 09/25/21 M3 PT-IP Subjective Start: 09/26/21 12:20 Freq: NEEDED Status: Active Protocol: Document 09/26/21 09:25 AB (Rec: 09/26/21 12:36 AB [id number]) Subjective Physical Therapy Visit Type Type Initial Evaluation Visit Start Time 09:25 Visit Stop Time 10:09 Total Visit Minutes 44 Number of HOME ENERGY RATER Visits 0 Physical Therapy Visit Comments Patient Comments agreeable to do PT M4 PT-IP Mobility and Gait Start: 09/26/21 12:20 Freq: NEEDED Status: Active Protocol: Document 09/26/21 09:25 AB (Rec: 09/26/21 12:36 AB [id number]) PT-Bed Mobility Assessment Supine to Sit Supine to Sit Standby Assistance PT-Transfer Assessment Sit to and From Stand Sit to and from Stand Standby Assistance,Contact Guard Assistance,1 Person Assistance,Use of Upper Extremities Equipment Transfer Assistive Device Gait Belt,Front Wheeled Walker Orthotic/Prosthetic Devices or Brace: No Transfers Transfer Destination Chair,Toilet Transfer Technique ambulated Transfer Ability Level of Assist Standby Assistance,Contact Guard Assistance,1 Person Assistance,Use of Upper Extremities Comments Mobility Comments BP in supine: 133/50. pt completed supine to sit SBA. able to sit on EOB SBA. no c/o nausea/lightheadeness. BP in sittin/83. completed sit to stand CGA and cues and ambulated in room ~ 20 ft using FWW. sat on chair. agreed to ambulate more. completed sit to stand from chair SBA. ambulated in room ~ 35 ft using fWW SBA and cues for R quads activation for steadiness. pt then requested to use the toilet and ambulated to the toilet using FWW SBA. completed toileting needs SBA. completed sit to stand from the toilet SBA using grab bar and ambulated towards the sink using FWW SBA . able to maintain standing using FWW/counter for support SBA while completing handwashing. agreed to sit on the chair. pt ambulated to the chair using FWW SBA. positioned on the chair. call light and table placed within reach. pt and spouse without any questions. Gait Assessment Gait Gait Assistance Required: Standby Assistance,Contact Guard Assist Distance (Feet) 35 Able to Maintain Weight Bearing Status Yes During Gait Assistive Devices Assistive Device Gait Belt,Front Wheeled Walker Orthotic/Prosthetic Devices or Brace: No Gait Deviations General Gait Pattern Antalgic,Decreased Stride Length,Step-to Gait Factors Limiting Gait Function Factors Limiting Gait Function Decreased Activity Tolerance, Decreased Sensation,Decreased Strength,Difficulty Following Directions,Limited Range of Motion,Pain,Poor Balance,Poor Safety Awareness PT-Balance Assessment Sitting Balance and Reactions Static Sitting Balance Ability Normal Dynamic Sitting Balance Ability Good Standing Balance and Reactions Static Standing Balance Ability Fair Dynamic Standing Balance Ability Fair Device Used FWW M5 PT-IP Objective Assessments Start: 09/26/21 12:20 Freq: NEEDED Status: Active Protocol: Document 09/26/21 09:25 AB (Rec: 09/26/21 12:36 AB [id number]) Orientation Orientation/Cognition Level of Alertness Alert Orientation Name,Place,Situation Safety Awareness Decreased Safety Awareness Memory Description No Deficits Noted,Short Term Impaired Gross Range of Motion Lower Extremity ROM Assessment Right Impaired Impairments PROM: R knee ~ 60 deg Strength Lower Extremity Strength Assessment Right Impaired Hip 4-/5 Knee 4-/5 Coordination Assessment Gross Coordination Gross Coordination WNL Sensation Assessment Sensation Gross Sensation Right LE Impaired Sensation Description Numbness Comments Sensation Comments R foot slight numbness Muscle Tone Muscle Tone WNL Yes M6 PT-IP Treatment Start: 09/26/21 12:20 Freq: NEEDED Status: Active Protocol: Document 09/26/21 09:25 AB (Rec: 09/26/21 12:36 AB [id number]) Physical Therapy Treatment Education Education Provided Precautions,Weight Bearing Status,Post-Op Packet,Safety M7 PT-IP Assessment and Plan Start: 09/26/21 12:20 Freq: NEEDED Status: Active Protocol: Document 09/26/21 09:25 AB (Rec: 09/26/21 12:36 AB [id number]) PT Summary Assessment and Plan Potential Rehabilitation Potential Good Status of Condition at Evaluation Stable Summary Impairments Pain,ROM,Strength,Balance, Coordination,Sensation,Tone, Cognition,Bed Mobility, Transfers,Gait,Activity Tolerance Assessment Summary pt requiring SBA to CGA with mobility using FWW and will have her family to assist her at home. pt stated that she has outpt PT set up. pt may go home when medically stable. Goals Bed Mobility Goal Independent Transfer Goal Independent,Front Wheeled Walker Gait Goal Independent,Front Wheel Walker Gait Distance 250 Days to Meet Goals 3 Frequency of Treatment Frequency Of Treatment Twice a Day Treatment Plan Physical Therapy Treatment Plan Bed Mobility Training,Transfer Training,Gait Training, Therapeutic Exercise,Balance Retraining,Post Op Education, Discharge Planning,Hot or Cold Pack,Neuromuscular Re-ed, Coordination Retraining,Manual Therapy Weight Bearing Status Weight Bearing Status Weight Bear as Tolerated Allowed Weight Bearing Amount (enter % RLE WBAT or #) (%) Recommendations To Nursing Amount of Assist Needed 1 Person Assist Discharge Recommendations PT Discharge Recommendations Home with Assistance, Outpatient PT Transportation Needs at Discharge Private Vehicle
[2021-09-26 09:56] LABS: Hematocrit 32.7 % (36-46); Hemoglobin 11.3 g/dL (12.0-16.0)
[2021-09-26 11:36] VITALS: BP 116/39; PULSE 71; RESP 1; TEMP 36.6; O2SAT 99
--- NOTE | 2021-09-26 15:08 | CM.DANOTE ---
DCP/Assessment: Reviewed chart. Patient is a 66yr old female admitted to [facility] for elective revision of total right TKA. PCP listed is Majo Aquino. Primary payor is 1)[employer]care [employer]mt. Met with patient and spouse/Mehul at bedside explained CM/SW role. Patient reports that she has all needed DME and plans to go outpatient in [place] for continued rehabilitation. Patient seen and cleared by therapy today. P: Home today. KERA Shaver Discharge Planning/Care Management CM Discharge Assessment Start: 09/26/21 15:02 Freq: Status: Active Protocol: Document 09/26/21 15:02 KJS (Rec: 09/26/21 15:07 KJS [id number]) Discharge Planning Assessment Assigned Crime Specialist KERA Shaver Contact Information Mehul Murillo (spouse) # [phone] Advance Directives? No History Provided By Patient,Medical Record Prior Living Arrangements House Household Members spouse,family,children Type of transporation used prior to Drives own vehicle admit Independent with ADL's Yes Is patient alert and oriented? Yes Caregiver for Another No DME Already Rented / Owned FWW / Walker Patient/Family Preference OP PT Therapy Barriers to Discharge No Discharge Plan Home Transportation Arrangement Family Referrals Initiated None needed Whiteboard Updated in Patient Room with Yes name and ext. # of Crime Specialist Review Status In Process Next Review Type Continued Stay Review Discharge Planning/Care Management CM Discharge Assessment Start: 09/26/21 15:02 Freq: Status: Active Protocol: Document 09/26/21 15:02 KJS (Rec: 09/26/21 15:07 KJS [id number]) Discharge Planning Assessment Assigned Crime Specialist KERA Shaver Contact Information Mehul Murillo (spouse) # [phone] Advance Directives? No History Provided By Patient,Medical Record Prior Living Arrangements House Household Members spouse,family,children Type of transporation used prior to Drives own vehicle admit Independent with ADL's Yes Is patient alert and oriented? Yes Caregiver for Another No DME Already Rented / Owned FWW / Walker Patient/Family Preference OP PT Therapy Barriers to Discharge No Discharge Plan Home Transportation Arrangement Family Referrals Initiated None needed Whiteboard Updated in Patient Room with Yes name and ext. # of Crime Specialist Review Status In Process Next Review Type Continued Stay Review
--- NOTE | 2021-09-26 15:35 | PC.NURSE ---
Patient discharged earlier. Hemovac taken out and line intact. Tramadol given before she left for discomfort at 5/10. Pressure dressing put on hemovac site. She left with juan drain and small motor flashing green. Dressing to r.knee intact and cms wnl.
== END 2021-09-26 14:20 | disposition home or self-care (01) | DRG 467 ==
PROVIDERS: Admitting Provider Orthopaedic Surgery; PCP Family Medicine; Referring Provider Orthopaedic Surgery; Visit Provider Orthopaedic Surgery
PROC: 0SRC0J9 Replacement of Right Knee Joint with Synthetic Substitute, Cemented, Open Approach (ICD-10-PCS; principal; 2021-09-25 11:15)
DX: T84.032A Mechanical loosening of internal right knee prosthetic joint, initial encounter (principal); I42.9 Cardiomyopathy, unspecified; I50.9 Heart failure, unspecified; I48.91 Unspecified atrial fibrillation; Z79.01 Long term (current) use of anticoagulants; Z20.822 Contact with and (suspected) exposure to COVID-19; Z89.521 Acquired absence of right knee
CPT/HCPCS: 36415; 73560; 85014; 85018; 87070; 87075; 87176; 87205; 87801; 97161; 97530; C1776; C1713; C9290; J0171; J0690; J1100; J1200; J2250; J2274; J2405; J2704; J3010